=== PATIENT | female | born 1970 | race American Indian/Alaskan Native ===

== ENCOUNTER 2017-06-25 12:54 | Inpatient (IN) | payer MEDICARE ==
[2017-06-25] MEDS ORDERED: ZOFRAN ONE (12:57)
[2017-06-25] MEDS ORDERED: ZOFRAN IV ONE (13:01)
[2017-06-25 13:05] LABS: Eosinophils % (Auto) 6.9 % (0.0-4.3); Hematocrit 24.5 % (30.3-42.9); Hemoglobin 7.7 gm/dl (10.1-14.3); Mean Corpuscular HGB Conc 32 % (30-34); Mean Corpuscular Hemoglobin 30 pg (28-32); Mean Corpuscular Volume 94 fl (79-97); Platelet Count 517 K/mm3 (140-440); Red Blood Count 2.61 M/mm3 (3.65-5.03); Red Cell Distribution Width 13.8 % (13.2-15.2); White Blood Count 14.3 K/mm3 (4.5-11.0)
--- NOTE | 2017-06-25 13:05 | Emergency Department Report ---
HPI - General Time Seen by Provider: 06/25/17 12:55 - HPI HPI: Charge nurse triage/room 2 The chief complaint of altered mental status. EMS reports the patient's caregiver/mother noticed that the patient was not speaking at 11:45. The exact last known well time is not known as there is no family present in the EMS states that the patient was noted to be her normal self " this morning." EMS reports the patient is aphasic and appears to be flaccid on her right side. The patient occasionally makes eye contact me to interview but does not speak. The patient appears to have a right-sided ptosis and will not squeeze with either hand 1 rn plastics are assessed. Per EMS Accu-Chek was 90 14:18 Patient's mother/acute care nurse now at bedside and states that the patient's last known well time was between 09:00-10:00 and the patient was observed speaking in her normal fashion. Family states that approximately 11:45 patient was found to not speak and not behaving like her normal self and EMS was subsequently called Location: Mental state Duration: [See above] Quality: Altered, nonverbal Severity: Severe Modifying factors: [see above] Context: [see above] Mode of transportation: [not driving] ED Past Medical Hx - Past Medical History Hx Hypertension: Yes Hx Diabetes: Yes Hx Deep Vein Thrombosis: Yes Hx GERD: Yes - Surgical History Hx Cholecystectomy: Yes Additional Surgical History: bilateral aka 06/2015 - Family History Family history: no significant - Social History Smoking Status: Unknown if ever smoked - Medications Home Medications: Home Medications Medication Instructions Recorded Confirmed Last Taken Type Apixaban [Eliquis] 5 mg PO BID #60 tablet 07/11/15 08/28/15 Unknown Rx Gabapentin [Neurontin] 600 mg PO TID #90 capsule 07/11/15 08/28/15 Unknown Rx Potassium Chloride [K-Dur] 20 meq PO QDAY tablet 07/11/15 08/28/15 Unknown Rx Furosemide [Lasix TAB] 20 mg PO QDAY 08/26/15 08/28/15 Unknown History Hyoscyamine Subl [Levsin Sl 0.125 0.125 mg SL Q8HR PRN #20 tab 08/26/15 Unknown Rx TAB] Insulin Lispro [Humalog 100 0 units SQ AC 08/26/15 08/28/15 Unknown History UNITS/ML Kwikpen] Lisinopril [Zestril TAB] 20 mg PO QDAY 08/26/15 08/28/15 Unknown History Nitrofurantoin [place]/M-Cryst 100 mg PO Q12HR #14 capsule 08/26/15 08/28/15 Unknown Rx [Macrobid CAP] Ondansetron [Zofran ODT TAB] 8 mg PO Q8HR PRN #20 tab.rapdis 08/26/15 08/28/15 Unknown Rx Oxybutynin Chloride [Oxybutynin 5 mg PO QDAY 08/26/15 08/28/15 Unknown History Chloride ER] traMADol [Ultram 50 MG tab] 50 - 100 mg PO Q8HR PRN #20 tablet 08/26/15 Unknown Rx HYDROcodone/APAP 10-325 [[place] 10 mg PO Q6HR PRN 08/28/15 08/28/15 Unknown History 10-325 mg TAB] Cephalexin [Keflex] 500 mg PO Q6HR #20 capsule 11/30/15 Unknown Rx Ondansetron [Zofran Odt] 4 mg PO Q8HR #10 tab.rapdis 11/30/15 Unknown Rx traMADol [Ultram 50 MG tab] 50 mg PO Q6HR PRN #15 tablet 11/30/15 Unknown Rx ED Review of Systems ROS: Stated complaint: POSS CVA Other details as noted in HPI Comment: Unobtainable due to pts medical conditions Physical Exam - Physical Exam Physical Exam: GENERAL: The patient is well-developed well-nourished female lying on the EMS stretcher occasionally making eye contact but nonverbal. [] HEENT: Normocephalic. Atraumatic. Right-sided ptosis NECK: Trachea midline CHEST/LUNGS: There is no respiratory distress noted. HEART/CARDIOVASCULAR: Regular. There is no tachycardia. There is no gallop rub or murmur. ABDOMEN: Abdomen is soft, nontender. Patient has normal bowel sounds. There is no abdominal distention. SKIN: There is no rash. There is no diaphoresis. NEURO: The patient is awake but nonverbal. The patient occasionally makes eye contact but does not speak or follow commands. MUSCULOSKELETAL: There is no evidence of acute injury. ED Course - Consultations Consultation #1: 06/25/17 13:39 Tele-neurology consulted- case discussed with Dr. See. Recommends obtaining MRA Consultation #2: 06/25/17 17:[address] See-he states he discussed the case with [facility] neurologist Dr. Renteria and infarct is too large to consider thrombectomy. Recommends admission with CVA management Consultation #3: 06/25/17 17:12 Nephrology paged ED Medical Decision Making - Lab Data Result diagrams: 06/25/17 12:55 06/25/17 12:55 - EKG Data -: EKG Interpreted by Ne EKG shows normal: sinus rhythm Rate: tachycardia (107 bpm) - EKG Data When compared to previous EKG there are: previous EKG unavailable - Radiology Data Radiology results: report reviewed (CT head, MRI brain, MRA brain), image reviewed (CT head, MRI brain, MRA brain) CT head (regular etiology)-nonspecific/indeterminate left [facility] CT appearance. Otherwise no acute intracranial CT abnormality with year-old findings. MRI is more sensitive for detection of acute infarct may be useful for further evaluation in the setting of a focal neurologic deficit. MRA HEAD WITHOUT CONTRAST INDICATION: Aphasia. COMPARISON: None similar. FINDINGS: MRA of the head performed without intravenous contrast and demonstrates abrupt termination/occlusion of left MCA approximately 1.3 cm from its ICA origin as on axial series 3, image 75 with nonvisualization of further distal branches as well. Normal remainder [place]. No vascular malformation. Please note that detection of aneurysms less than 5 mm is limited on this exam. CONCLUSION: Complete occlusion/thrombosis of the left MCA, as described. I phoned the above results to Dr. Thomas in the ER, 3:45 PM, 06/25/2017. Thank you for the opportunity to participate in this patient's care. Transcribed By: RS Dictated By: ROBERT LEE MD Electronically Authenticated By: ROBERT LEE MD Signed Date/Time: 06/25/17 1608 DD/ 1604 TD/TT: 06/25/17 1608 MRI BRAIN WITHOUT CONTRAST INDICATION: Aphasia. COMPARISON: Head CT from earlier today. FINDINGS: Noncontrast multiplanar and multisequence MRI of the brain demonstrates large, approximately 11 x 4 cm left MCA acute infarct/restricted diffusion. No midline shift, though left lateral ventricle slightly effaced/smaller than the right as on axial image 16. Symmetric sulci. No acute hemorrhage or abnormal extra-axial masses or fluid collections. Normal major intracranial vascular flow voids with subtle left MCA CT hyperdensity not clearly appreciated, though better assessed on the accompanying MRA. Normal posterior fossa with symmetric seventh and eighth nerve complexes. Preserved basilar cisterns. Abnormal right eye globe signal, possibly a prosthesis. Normal left eye globe. Mild left sphenoid sinus mucosal thickening/debris. Minimal right maxillary and right mastoid inflammation. Clear remainder imaged paranasal sinuses and mastoid air cells. Approximately 5 mm rightward nasal septal spur. Normal midline structures without evidence of Chiari malformation. CONCLUSION: 1. Large left MCA territory frontotemporoparietal acute infarct, as described. 2. Other findings, including sinusitis and possible right eye prosthesis, as above. Please correlate. I phoned the above results to Dr. Thomas in the ER, 3:45 PM, 06/25/2017. Thank you for the opportunity to participate in this patient's care. Transcribed By: RS Dictated By: ROBERT LEE MD Electronically Authenticated By: ROBERT LEE MD Signed Date/Time: 06/25/17 1604 DD/ 1556 TD/TT: 06/25/17 1604 - Differential Diagnosis altered mental status, intracranial hemorrhage, CVA, hypoglycemia Critical care attestation.: If time is entered above; I have spent that time in minutes in the direct care of this critically ill patient, excluding procedure time. ED Disposition Clinical Impression: Altered mental status, Acute renal failure, CVA (cerebral vascular accident) Disposition: OP ADMIT IP TO THIS HOSP Is pt being admited?: Yes Does the pt Need Aspirin: No Condition: Serious Referrals: PRIMARY CARE, [Primary Care Provider] - 3-5 Days Time of Disposition: 17:09 (hospitalist notified (Dr Leslie))
[2017-06-25 13:16] LABS: INR 1.26 (0.87-1.13)
[2017-06-25 13:17] LABS: Partial Thromboplastin Time 35.3 Sec. (24.2-36.6)
--- NOTE | 2017-06-25 13:21 | Cat Scan Report ---
HEAD CT WITHOUT CONTRAST INDICATION: Altered mental status, aphasia. 98N. COMPARISON: None similar. FINDINGS: Noncontrast head CT demonstrates symmetric ventricles and sulci without acute hemorrhage, mass effect or midline shift. No definitive acute white matter changes identified with subtle nonspecific left MCA hyperdense appearance as on axial series 2, images 17-20. No abnormal extra-axial fluid collections. Posterior fossa structures and basilar cisterns appear within normal limits. Asymmetric extensive hyperdensity in the right eye globe, possibly prosthesis versus hemorrhagic. Mild left sphenoid sinus opacity/mucosal thickening, axial image 11. Slight right maxillary sinus mucosal thickening. Clear remainder imaged paranasal sinuses and mastoid air cells. Atherosclerotic ICA and vertebral artery calcifications. Intact calvarium. Normal scalp. Few radiopaque dental fillings. CONCLUSION: Nonspecific/indeterminate left MCA CT appearance, as described. Otherwise no acute intracranial CT abnormality with few other findings, as above. MRI is more sensitive for detection of acute infarct and may be useful for further evaluation in the setting of a focal neurologic deficit. I phoned the above results to Dr. Thomas in the ER, 1:10 PM, 06/25/2017. Thank you for the opportunity to participate in this patient's care.
[2017-06-25 13:23] LABS: Creatine Kinase MB 21.9 ng/mL (0.0-4.0)
[2017-06-25 13:24] LABS: Albumin 2.4 g/dL (3.9-5); Albumin/Globulin Ratio 0.6 %; Bilirubin,Total 0.2 mg/dL (0.1-1.2); Chloride 102.9 mmol/L (98-107); Potassium 4.4 mmol/L (3.6-5.0); Total Protein 6.5 g/dL (6.3-8.2)
[2017-06-25 13:56] LABS: Bacteria,Urine 4+ /HPF (Negative); Bilirubin,Urine NEG (Negative); Blood,Urine MOD (Negative); Ketones,Urine NEG (Negative); Leukocyte Esterase,Urine LG (Negative); Nitrite,Urine POS (Negative); Urobilinogen,Urine < 2.0 mg/dL (<2.0)
[2017-06-25 14:03] LABS: WBC,Urine > 182.0 /HPF (0.0-6.0)
--- NOTE | 2017-06-25 16:10 | Magnetic Resonance Report ---
MRI BRAIN WITHOUT CONTRAST INDICATION: Aphasia. COMPARISON: Head CT from earlier today. FINDINGS: Noncontrast multiplanar and multisequence MRI of the brain demonstrates large, approximately 11 x 4 cm left MCA acute infarct/restricted diffusion. No midline shift, though left lateral ventricle slightly effaced/smaller than the right as on axial image 16. Symmetric sulci. No acute hemorrhage or abnormal extra-axial masses or fluid collections. Normal major intracranial vascular flow voids with subtle left MCA CT hyperdensity not clearly appreciated, though better assessed on the accompanying MRA. Normal posterior fossa with symmetric seventh and eighth nerve complexes. Preserved basilar cisterns. Abnormal right eye globe signal, possibly a prosthesis. Normal left eye globe. Mild left sphenoid sinus mucosal thickening/debris. Minimal right maxillary and right mastoid inflammation. Clear remainder imaged paranasal sinuses and mastoid air cells. Approximately 5 mm rightward nasal septal spur. Normal midline structures without evidence of Chiari malformation. CONCLUSION: 1. Large left MCA territory frontotemporoparietal acute infarct, as described. 2. Other findings, including sinusitis and possible right eye prosthesis, as above. Please correlate. I phoned the above results to Dr. Thomas in the ER, 3:45 PM, 06/25/2017. Thank you for the opportunity to participate in this patient's care.
--- NOTE | 2017-06-25 16:14 | Magnetic Resonance Report ---
MRA HEAD WITHOUT CONTRAST INDICATION: Aphasia. COMPARISON: None similar. FINDINGS: MRA of the head performed without intravenous contrast and demonstrates abrupt termination/occlusion of left MCA approximately 1.3 cm from its ICA origin as on axial series 3, image 75 with nonvisualization of further distal branches as well. Normal remainder [place]. No vascular malformation. Please note that detection of aneurysms less than 5 mm is limited on this exam. CONCLUSION: Complete occlusion/thrombosis of the left MCA, as described. I phoned the above results to Dr. Thomas in the ER, 3:45 PM, 06/25/2017. Thank you for the opportunity to participate in this patient's care.
[2017-06-25] MEDS ORDERED: PLAVIX PO ONE (17:06)
[2017-06-25] MEDS ORDERED: SODIUM BICARBONATE 150 MEQ in D5W 1,000 ML IV ONE (17:16)
--- NOTE | 2017-06-25 17:24 | History and Physical Report ---
History of Present Illness Chief complaint: Mom jo talking History of present illness: 46 YO Female with HTN, DM, DVT, GERD presents to ED for evaluation. Pt stuporous , and unable to provide history, but history taken from daughter who is the primary caregiver and is at bedside during exam and interview. As per daughter, patient was in her usual state of health and was last observed speaking and interacting with family at 2345 hrs which is the last known well time. Upn waking this morning, patient was noted to be acting abnormal, and unable to speak. EMS notified, and upon arrival patient was found to be aphasic with flaccid right sided paralysis. Pt transported to [facility] for further care and evaluation. Pt seen and evaluated in ED and found to be in distress. Pt underwent CT head with revealed a large Left MCA territory infarct. Pt outside therapeutic window for TPA. Teleneurology notified. Case discussed with Dr. See-he states he discussed the case with [facility] neurologist Dr. Renteria who states that the infarct is too large to consider thrombectomy and recommends admission with CVA management . Case discussed with car hop Dr. Saeed- recommends initiating bicarbonate drip with D5 water with 150 mEq sodium bicarbonate at 100 mL/hr. Pt admitted to ICU. Past History Past Medical History: diabetes, DVT, GERD, hypertension Past Surgical History: Other (Bilateral AKA) Social history: , lives with family. denies: smoking, alcohol abuse, prescription drug abuse, IV drug use Family history: diabetes, hypertension Medications and Allergies Allergies Allergy/AdvReac Type Severity Reaction Status Date / Time heparin Allergy Severe Bleeding Verified 04/13/15 08:06 metoclopramide HCl Allergy Shortness Verified 04/17/15 17:01 [From Reglan] of Breath Home Medications Medication Instructions Recorded Confirmed Last Taken Type Gabapentin [Neurontin] 600 mg PO TID #90 capsule 07/11/15 06/25/17 Unknown Rx Furosemide [Lasix TAB] 20 mg PO QDAY 08/26/15 06/25/17 Unknown History Insulin Lispro [Humalog 100 0 units SQ AC 08/26/15 06/25/17 Unknown History UNITS/ML Kwikpen] HYDROcodone/APAP 10-325 [[place] 10 mg PO Q6HR PRN 08/28/15 06/25/17 Unknown History 10-325 mg TAB] Insulin Glargine,Hum.rec.anlog 35 units SQ QHS 06/25/17 06/25/17 Unknown History [Lantus] Active Meds: Active Medications Sodium Bicarbonate 150 meq/ (Dextrose) 1,150 mls @ 100 mls/hr IV ONCE.ED ONE Stop: 06/26/17 04:45 Review of Systems ROS unobtainable: due to mental status Exam - Constitutional Vitals: Temp Pulse Resp BP Pulse Ox 98.1 F 112 H 16 198/82 98 06/25/17 16:52 06/25/17 16:52 06/25/17 16:52 06/25/17 16:52 06/25/17 16:52 General appearance: Present: severe distress - EENT Eyes: Present: irregular pupil - Neck Neck: Present: supple, normal ROM - Respiratory Respiratory effort: labored Respiratory: bilateral: diminished - Cardiovascular Heart Sounds: Present: S1 & S2. Absent: rub, click - Extremities Extremities: pulses symmetrical, No edema Peripheral Pulses: within normal limits - Abdominal General gastrointestinal: Present: soft, non-tender, non-distended, normal bowel sounds Female genitourinary: Present: normal - Integumentary Integumentary: Present: clear, dry, clammy, decreased turgor - Musculoskeletal Musculoskeletal: right sided weakness - Psychiatric Psychiatric: no appropriate mood/affect, no intact judgment & insight, no memory intact - Neurologic Neurologic: focal deficits, no moves all extremities Results - Labs CBC & Chem 7: 06/25/17 12:55 06/25/17 12:55 Labs: Abnormal lab results 06/25/17 06/25/17 06/25/17 Range/Units 12:55 12:55 12:55 WBC 14.3 H (4.5-11.0) K/mm3 RBC 2.61 L (3.65-5.03) M/mm3 Hgb 7.7 L (10.1-14.3) gm/dl Hct 24.5 L (30.3-42.9) % Plt Count 517 H (140-440) K/mm3 Eos % (Auto) 6.9 H (0.0-4.3) % [place] # 1.0 H (0.0-0.8) K/mm3 Eos # 1.0 H (0.0-0.4) K/mm3 Seg Neutrophils # 8.4 H (1.8-7.7) K/mm3 PT 16.5 H (12.2-14.9) Sec. INR 1.26 H (0.87-1.13) Carbon Dioxide 10 L (22-30) mmol/L BUN 85 H (7-17) mg/dL Creatinine 6.6 H (0.7-1.2) mg/dL Glucose 117 H (65-100) mg/dL POC Glucose (70-105) Calcium 7.0 L (8.4-10.2) mg/dL Alkaline Phosphatase 267 H (35-129) units/L Total Creatine Kinase 158 H (30-135) units/L CK-MB (CK-2) 21.9 H (0.0-4.0) ng/mL CK-MB (CK-2) Rel Index 13.8 H (0-4) Troponin T 0.332 H* (0.00-0.029) ng/mL Albumin 2.4 L (3.9-5) g/dL LDL Cholesterol Direct 39 L (50-130) mg/dL HDL Cholesterol 32 L (40-59) mg/dL Urine WBC (Auto) (0.0-6.0) /HPF 06/25/17 06/25/17 Range/Units 12:59 13:38 WBC (4.5-11.0) K/mm3 RBC (3.65-5.03) M/mm3 Hgb (10.1-14.3) gm/dl Hct (30.3-42.9) % Plt Count (140-440) K/mm3 Eos % (Auto) (0.0-4.3) % [place] # (0.0-0.8) K/mm3 Eos # (0.0-0.4) K/mm3 Seg Neutrophils # (1.8-7.7) K/mm3 PT (12.2-14.9) Sec. INR (0.87-1.13) Carbon Dioxide (22-30) mmol/L BUN (7-17) mg/dL Creatinine (0.7-1.2) mg/dL Glucose (65-100) mg/dL POC Glucose 114 H (70-105) Calcium (8.4-10.2) mg/dL Alkaline Phosphatase (35-129) units/L Total Creatine Kinase (30-135) units/L CK-MB (CK-2) (0.0-4.0) ng/mL CK-MB (CK-2) Rel Index (0-4) Troponin T (0.00-0.029) ng/mL Albumin (3.9-5) g/dL LDL Cholesterol Direct (50-130) mg/dL HDL Cholesterol (40-59) mg/dL Urine WBC (Auto) > 182.0 H (0.0-6.0) /HPF Assessment and Plan - Patient Problems (1) Sepsis Current Visit: Yes Status: Acute Plan to address problem: Sepsis protocol: IV antibiotic therapy for UTI, IVF resuscitation, serial lactic acid, urinalysis, CXR, blood cultures, monitor uop q shift, The high probability of a clinically significant, sudden or life threatening deterioration of the [cardiac, renal, neurologic] system(s) required my full and direct attention, intervention and personal management. The aggregate critical care time was [70] minutes. This time is in addition to time spent performing reported procedures but includes the following: [x] Data Review and interpretation [x] Patient assessment and monitoring of vital signs [x] Documentation [x] Medication orders and management (2) ARF (acute renal failure) Current Visit: Yes Status: Acute Plan to address problem: Nephrology consulted, IVF resuscitation therapy, urine electrolytes, monitor uop q shift, bicarbonate drip. (3) UTI (urinary tract infection) Current Visit: Yes Status: Acute Plan to address problem: IV abx, monitor uop q shift, stewart catheter placement, (4) Accelerated essential hypertension Current Visit: Yes Status: Acute Plan to address problem: Monitor BP Q shift, permissive hypertension overnight secondary to Ischemic CVA. (5) CVA (cerebral vascular accident) Current Visit: Yes Status: Acute Qualifiers: Precerebral and cerebral artery: middle cerebral artery Laterality of affected vessel: left Plan to address problem: Stroke protocol: teleneurology consulted, supportive care. permissive hypertension overnight, poor prognosis. Discussed prognosis with daughter. Will continue medical management. (6) DVT prophylaxis Current Visit: No Status: Acute
[2017-06-25] MEDS ORDERED: DULCOLAX PR PRN (18:46)
[2017-06-25] MEDS ORDERED: ALUM-MAG HYDROX-SIMETH 200-200-20MG/5ML PO PRN (18:46)
[2017-06-25] MEDS ORDERED: MILK OF MAGNESIA PO PRN (18:46)
[2017-06-25] MEDS ORDERED: VANCOMYCIN VIAL IV ONE (18:50)
[2017-06-25] MEDS ORDERED: NACL 0.9% 1000 ML IV ONE (18:50)
[2017-06-25] MEDS ORDERED: D50W (25GM) Syringe IV PRN (18:53)
[2017-06-25] MEDS ORDERED: VANCOMYCIN PHARMACY TO DOSE IV SCH (19:00)
--- NOTE | 2017-06-25 20:04 | XRay Report ---
FINAL REPORT PROCEDURE: XR ABDOMEN 1V AP TECHNIQUE: AP view of the abdomen is obtained HISTORY: Dobhoff placement COMPARISON: CT exam dated August 28, 2015 FINDINGS: Dobbhoff tube has its tip in the region of the antrum of the stomach, directed right laterally. It would likely benefit from being advanced into the duodenum. No small bowel dilation is seen. IMPRESSION: Dobbhoff tube has its tip in the region of the antrum of the stomach, and would likely benefit from being advanced into the duodenum.
[2017-06-25] MEDS ORDERED: NACL 0.9% 1000 ML 2,000 ML ONE (20:38)
[2017-06-25] MEDS ORDERED: VANCOMYCIN 1,250 MG in NACL 0.9% 250ML 250 ML IV ONE (21:00)
[2017-06-25] MEDS ORDERED: SODIUM BICARBONATE IV ONE ×3 (21:10→23:22)
[2017-06-25] MEDS ORDERED: ZOSYN/NS 4.5GM/100ML 4.5 GM/100 ML VIAL IV SCH (22:00)
[2017-06-25] MEDS ORDERED: SODIUM BICARBONATE 150 MEQ in D5W 1,000 ML IV SCH (22:00)
--- NOTE | 2017-06-25 22:24 | XRay Report ---
FINAL REPORT PROCEDURE: XR CHEST 1V AP TECHNIQUE: Chest radiograph anteroposterior view. CPT 16556 HISTORY: volume status COMPARISON: No prior studies are available for comparison. FINDINGS: Heart is borderline enlarged without pulmonary venous congestion or pulmonary edema. No pleural effusion or pneumothorax is seen. Enteric tube is seen passing into the stomach off of the edge of the image. IMPRESSION: Borderline cardiomegaly is seen.
[2017-06-25] MEDS: NOVOLOG SUB-Q SCH (23:12)
[2017-06-25] MEDS ORDERED: NOVOLOG SUB-Q ONE (23:13)
[2017-06-26] MEDS ORDERED: NEURONTIN ONE (00:51)
[2017-06-26] MEDS ORDERED: PLAVIX ONE (00:51)
[2017-06-26] MEDS: NEURONTIN PO SCH ×4 (01:07→23:01)
[2017-06-26] MEDS: ZOSYN/NS 2.25 GM/50ML 2.25 GM/50 ML BAG IV SCH ×3 (01:07→17:02)
[2017-06-26] MEDS: NOVOLOG SUB-Q SCH ×4 (08:05→23:07)
[2017-06-26] MEDS ORDERED: LASIX PO SCH (10:00)
[2017-06-26] MEDS ORDERED: TYLENOL ONE (11:45)
--- NOTE | 2017-06-26 12:09 | Progress Note ---
Assessment and Plan Assessment and plan: Large acute L MCA stroke CT head/brain MRI obtained and showing large L MCA territory infarct On presentation out of window for TPA administration, but also not a candidate due to the size of infarct Neurologist at [facility] contacted and considered not a candidate for thrombectomy Allow permissive hypertension, frequent neuro checks, supportive care, antiplatelet and statin Based on evolution, PT/OT/ST evaluation Sepsis Likely secondary to UTI Blood and urine cultures obtained Started on broad-spectrum antibiotics and IV fluids UTI See above Acute renal failure ATN versus vasomotor nephropathy Renal ultrasound pending Hold diuretics, other nephrotoxins Continue IV fluids Nephrology following Severe metabolic acidosis Due to acute renal failure Started on bicarbonate drip Nephrology following Anemia Likely anemia of chronic disease Check iron studies, folate, B12 Monitor H&H Thrombocytosis Likely reactive Monitor Elevated troponin EKG with no acute ischemic changes Likely nonspecific, in the setting of acute renal failure Hypertension Permissive hypertension post stroke SBP in 160s Monitor Severe protein caloric malnutrition Now NPO; consider tube feeding Acute encephalopathy Treatment underlying conditions Supportive care Dispo Poor prognosis; family requesting transfer to [facility] for "specialized care"; Dr. See tele neurologist consulted on ER presentation stated he discussed the case with [place] neurologist Dr. Renteria who stated that the infarct is too large to consider thrombectomy and recommended admission here with CVA management History Interval history: no change in clinical status, unresponsive daughters at bedside, requesting tx to [facility] despite being told that [facility] neurologist declined it Hospitalist Physical - Constitutional Vitals: Temp Pulse Resp BP Pulse Ox 99.2 F 95 H 15 160/69 99 06/26/17 07:17 06/26/17 08:15 06/26/17 08:15 06/26/17 08:15 06/26/17 08:15 General appearance: Present: mild distress, other (unresponsive) - EENT Eyes: Present: PERRL - Neck Neck: Present: supple. Absent: masses or JVD, carotid bruits - Respiratory Respiratory effort: normal Respiratory: bilateral: CTA, negative: rhonchi, wheezing - Cardiovascular Rhythm: other (tachycardic) - Extremities Extremities: abnormal (B/l AKA) - Abdominal General gastrointestinal: soft, non-tender, non-distended, normal bowel sounds - Psychiatric Psychiatric: other (nonverbal) - Neurologic Neurologic: other (right sided hemiplegia) Results - Labs CBC & Chem 7: 12/07/17 12:55 06/25/17 12:55 Labs: Laboratory Last Values WBC 14.3 K/mm3 (4.5-11.0) H 06/25/17 12:55 RBC 2.61 M/mm3 (3.65-5.03) L 06/25/17 12:55 Hgb 7.7 gm/dl (10.1-14.3) L 06/25/17 12:55 Hct 24.5 % (30.3-42.9) L 06/25/17 12:55 MCV 94 fl (79-97) 06/25/17 12:55 MCH 30 pg (28-32) 06/25/17 12:55 MCHC 32 % (30-34) 06/25/17 12:55 RDW 13.8 % (13.2-15.2) 06/25/17 12:55 Plt Count 517 K/mm3 (140-440) H 06/25/17 12:55 Lymph % (Auto) 26.4 % (13.4-35.0) 06/25/17 12:55 [place] % (Auto) 6.9 % (0.0-7.3) 06/25/17 12:55 Eos % (Auto) 6.9 % (0.0-4.3) H 06/25/17 12:55 Baso % (Auto) 1.0 % (0.0-1.8) 06/25/17 12:55 Lymph # 3.8 K/mm3 (1.2-5.4) 06/25/17 12:55 [place] # 1.0 K/mm3 (0.0-0.8) H 06/25/17 12:55 Eos # 1.0 K/mm3 (0.0-0.4) H 06/25/17 12:55 Baso # 0.1 K/mm3 (0.0-0.1) 06/25/17 12:55 Seg Neutrophils % 58.8 % (40.0-70.0) 06/25/17 12:55 Seg Neutrophils # 8.4 K/mm3 (1.8-7.7) H 06/25/17 12:55 PT 16.5 Sec. (12.2-14.9) H 06/25/17 12:55 INR 1.26 (0.87-1.13) H 06/25/17 12:55 APTT 35.3 Sec. (24.2-36.6) 06/25/17 12:55 Sodium 137 mmol/L (137-145) 06/25/17 12:55 Potassium 4.4 mmol/L (3.6-5.0) 06/25/17 12:55 Chloride 102.9 mmol/L (98-107) 06/25/17 12:55 Carbon Dioxide 10 mmol/L (22-30) L 06/25/17 12:55 Anion Gap 29 mmol/L 06/25/17 12:55 BUN 85 mg/dL (7-17) H 06/25/17 12:55 Creatinine 6.6 mg/dL (0.7-1.2) H 06/25/17 12:55 Estimated GFR 8 ml/min 06/25/17 12:55 BUN/Creatinine Ratio 13 % 06/25/17 12:55 Glucose 117 mg/dL (65-100) H 06/25/17 12:55 POC Glucose 129 (70-105) H 06/26/17 07:46 Lactic Acid 0.90 mmol/L (0.7-2.0) 06/26/17 00:36 Calcium 7.0 mg/dL (8.4-10.2) L 06/25/17 12:55 Total Bilirubin 0.20 mg/dL (0.1-1.2) 06/25/17 12:55 AST 18 units/L (5-40) 06/25/17 12:55 ALT 9 units/L (7-56) 06/25/17 12:55 Alkaline Phosphatase 267 units/L (35-129) H 06/25/17 12:55 Ammonia 57.0 umol/L (25-60) 06/25/17 13:04 Total Creatine Kinase 158 units/L (30-135) H 06/25/17 12:55 CK-MB (CK-2) 21.9 ng/mL (0.0-4.0) H 06/25/17 12:55 CK-MB (CK-2) Rel Index 13.8 (0-4) H 06/25/17 12:55 Troponin T 0.332 ng/mL (0.00-0.029) H* 06/25/17 12:55 Total Protein 6.5 g/dL (6.3-8.2) 06/25/17 12:55 Albumin 2.4 g/dL (3.9-5) L 06/25/17 12:55 Albumin/Globulin Ratio 0.6 % 06/25/17 12:55 Triglycerides 141 mg/dL (2-149) 06/25/17 12:55 Cholesterol 99 mg/dL (50-199) 06/25/17 12:55 LDL Cholesterol Direct 39 mg/dL (50-130) L 06/25/17 12:55 HDL Cholesterol 32 mg/dL (40-59) L 06/25/17 12:55 Cholesterol/HDL Ratio 3.09 % 06/25/17 12:55 Urine Color Yellow (Yellow) 06/25/17 13:38 Urine Turbidity Clear (Clear) 06/25/17 13:38 Urine pH 5.0 (5.0-7.0) 06/25/17 13:38 Ur Specific [place] 1.013 (1.003-1.030) 06/25/17 13:38 Urine Protein 100 mg/dl mg/dL (Negative) 06/25/17 13:38 Urine Glucose (UA) 50 mg/dL (Negative) 06/25/17 13:38 Urine Ketones Neg mg/dL (Negative) 06/25/17 13:38 Urine Blood Mod (Negative) 06/25/17 13:38 Urine Nitrite Pos (Negative) 06/25/17 13:38 Urine Bilirubin Neg (Negative) 06/25/17 13:38 Urine Urobilinogen < 2.0 mg/dL (<2.0) 06/25/17 13:38 Ur Leukocyte Esterase Lg (Negative) 06/25/17 13:38 Urine WBC (Auto) > 182.0 /HPF (0.0-6.0) H 06/25/17 13:38 Urine RBC (Auto) 12.0 /HPF (0.0-6.0) 06/25/17 13:38 U Epithel Cells (Auto) 1.0 /HPF (0-13.0) 06/25/17 13:38 Urine Bacteria (Auto) 4+ /HPF (Negative) 06/25/17 13:38 Urine WBC Clumps 3+ /HPF 06/25/17 13:38 Urine Eosinophils None seen (None Seen) 06/25/17 13:38 Urine Creatinine 49.9 mg/dL (0.1-20.0) H 06/25/17 19:20 Urine Sodium 68 mmol/L 06/25/17 19:20 - Imaging and Cardiology CT Scan - head: report reviewed MRI - head: report reviewed (Large L MCA stroke)
--- NOTE | 2017-06-26 12:52 | Ultrasound Report ---
ULTRASOUND RENAL BILATERAL HISTORY: Renal failure. TECHNIQUE: transabdominal ultrasound with color Doppler interrogation. FINDINGS: The right kidney measures 12.0 x 5.1 x 4.7cm. Right renal cortex: 1.1cm. The left kidney measures 10.9 x 5.4 x 4.9cm. Left renal cortex: 1.2cm. The kidneys are normal size, contour and position. There is increased renal parenchymal echotexture bilaterally. Corticomedullary differentiation is preserved. No evidence for cystic disease, mass, nephrolithiasis, hydronephrosis or perinephric fluid. The views of the bladder and the region of the ureters appear normal. IMPRESSION: Normal size but echogenic kidneys consistent with nonspecific renal parenchymal disease. No obstructive uropathy identified.
--- NOTE | 2017-06-26 13:04 | Consultation ---
History of Present Illness - Reason for Consult Consult date: 06/26/17 acute renal failure - History of Present Illness Ms Roselia is a 46 y/o F with a PMH of HTN, DM, DVT, GERD, PVD s/p BL AKA who has been admitted to the [facility] with Stroke. Pt per family yesterday morning was unable to speak. She also had nausea and vomiting. She was brought to the ER where she was found to be aphasic with right sided paralysis. Pt had a CT brain done that showed large left MCA stroke. Pt was also found to have metabolic acidosis with ARF on labs. She is currently lethargic. Pt has a stewart and is making good urine. ROS: Unable to obtain as patient altered. Past History Past Medical History: diabetes, DVT, GERD, hypertension Past Surgical History: Other (Bilateral AKA) Social history: , lives with family. denies: smoking, alcohol abuse, prescription drug abuse, IV drug use Family history: diabetes, hypertension Medications and Allergies Allergies Allergy/AdvReac Type Severity Reaction Status Date / Time heparin Allergy Severe Bleeding Verified 04/13/15 08:06 metoclopramide HCl Allergy Shortness Verified 04/17/15 17:01 [From Reglan] of Breath Home Medications Medication Instructions Recorded Confirmed Last Taken Type Gabapentin [Neurontin] 600 mg PO TID #90 capsule 07/11/15 06/25/17 Unknown Rx Furosemide [Lasix TAB] 20 mg PO QDAY 08/26/15 06/25/17 Unknown History Insulin Lispro [Humalog 100 0 units SQ AC 08/26/15 06/25/17 Unknown History UNITS/ML Kwikpen] HYDROcodone/APAP 10-325 [[place] 10 mg PO Q6HR PRN 08/28/15 06/25/17 Unknown History 10-325 mg TAB] Insulin Glargine,Hum.rec.anlog 35 units SQ QHS 06/25/17 06/25/17 Unknown History [Lantus] Active Meds: Active Medications Al Hydrox/Mg Hydrox/Simethicone (Alum-Mag Hydrox-Simeth 106-591-72sm/5ml) 30 ml PO Q4H PRN PRN Reason: Indigestion Atorvastatin Calcium (Lipitor) 40 mg PO QHS [facility] Bisacodyl (Dulcolax) 10 mg UT QDAY PRN PRN Reason: constipation unrelieved by MOM Clopidogrel Bisulfate (Plavix) 75 mg PO QDAY [facility] Dextrose (D50w (25gm) Syringe) 50 ml IV PRN PRN PRN Reason: Hypoglycemia Gabapentin (Neurontin) 600 mg PO TID [facility] Last Admin: 06/26/17 09:32 Dose: 600 mg Piperacillin Sod/Tazobactam Sod (Zosyn/Ns 2.25 Gm/50ml) 2.25 gm in 50 mls @ 100 mls/hr IV Q8HR [facility] Last Admin: 06/26/17 06:32 Dose: 100 mls/hr Sodium Bicarbonate 150 meq/ (Dextrose) 1,150 mls @ 100 mls/hr IV DIRECT [facility] Last Admin: 06/25/17 23:43 Dose: 100 mls/hr Insulin Aspart (Novolog) 0 units SUB-Q ACHS [facility] PRN Reason: Protocol Last Admin: 06/26/17 12:17 Dose: Not Given Magnesium Hydroxide (Milk Of Magnesia) 30 ml PO Q4H PRN PRN Reason: Constipation Exam - Vital Signs Vital signs: Vital Signs Temp Pulse Resp BP Pulse Ox 98.6 F 108 H 16 185/87 96 06/25/17 13:11 06/25/17 13:11 06/25/17 13:11 06/25/17 13:11 06/25/17 13:11 - Physical Exam Narrative exam: GE: lethargic HEENT: Normocephalic Neck: Supple Chest: CTAB CVS: RRR Abd: BS+, Soft Ext: BL AKA Neuro: Altered UG: Stewart with clear yellow urine Results - Lab Results 06/26/17 Unknown 06/26/17 Unknown Most recent lab results Calcium 7.0 mg/dL (8.4-10.2) L 06/25/17 12:55 Urine Creatinine 49.9 mg/dL (0.1-20.0) H 06/25/17 19:20 Urine Sodium 68 mmol/L 06/25/17 19:20 Assessment and Plan Acute Renal failure likely pre renal, possible CKD from DM/HTN: -No BL Cr available so unknown if has CKD or not though give diabetic complications might very well have it -Cr trending down with IVFs. Will continue bicarb drip at 125 mls/hr. -Urine studies/Renal US ordered -RN to find out old labs from PCP -Renally dose all meds and avoid nephrotoxic meds Acute Left MCA stroke: -On plavix, statin -Per primary Metabolic acidosis: -Improving with bicarb drip, will continue Sepsis due to Urinary tract infection: -Follow Cx. On ABx -Per primary Diabetes mellitus type 2 on insulin: -Per primary Essential Hypertension: -Permissive HTN per primary and Neurology Anemia possibly Anemia of chronic disease: -Possibly due to CKD -Check Iron panel, if suggests ACD then will need epogen -Transfuse PRN per primary Hypocalcemia: -Improved when corrected for albumin -2 gms Ca gluconate ordered -Check PTH for 2HPT, if high may need calcitriol Hypomagnesemia: -Will replace S/p BL BKA: -On Plavix and statin With this note, I want to thank Dr Leslie for allowing me to participate in the care of Ms Veloz, i will continue to follow her closely with you. Thank you for the consult. Boris Saeed MD Nephrology, Hypertension, Dialysis, Transplantation Phone no: [phone]
[2017-06-26 13:37] LABS: Basophils % (Auto) 0.7 % (0.0-1.8); Eosinophils % (Auto) 3.2 % (0.0-4.3); Hemoglobin 6.2 gm/dl (10.1-14.3); Mean Corpuscular HGB Conc 32 % (30-34); Mean Corpuscular Hemoglobin 29 pg (28-32); Mean Corpuscular Volume 92 fl (79-97); Platelet Count 477 K/mm3 (140-440); Red Blood Count 2.11 M/mm3 (3.65-5.03); Red Cell Distribution Width 13.8 % (13.2-15.2); White Blood Count 9.6 K/mm3 (4.5-11.0)
[2017-06-26 13:44] LABS: Hematocrit 19.3 % (30.3-42.9)
[2017-06-26 13:48] LABS: Chloride 100.1 mmol/L (98-107); Magnesium 1.4 mg/dL (1.7-2.3); Phosphorous 5.7 mg/dL (2.5-4.5); Potassium 3.1 mmol/L (3.6-5.0)
[2017-06-26 13:53] LABS: Calcium 5.7 mg/dL (8.4-10.2)
[2017-06-26] MEDS ORDERED: MAGNESIUM SULFATE IV ONE (14:44)
[2017-06-26] MEDS ORDERED: MAGNESIUM SULFATE 2GM/50ML 2 GM/50 ML BAG IV ONE ×2 (15:30→22:00)
[2017-06-26 16:00] LABS: Iron 17 ug/dL (37-170); Total Iron Binding Capacity 112 mcg/dL (250-450)
[2017-06-26] MEDS: SODIUM BICARBONATE 150 MEQ in D5W 1,000 ML IV SCH (17:04)
[2017-06-26] MEDS ORDERED: NACL 0.9% 500 ML 500 ML IV ONE (17:44)
[2017-06-26] MEDS ORDERED: MAGNESIUM SULFATE 1 GM in NACL 0.9% 50 ML IV ONE (17:45)
[2017-06-26] MEDS ORDERED: CALCIUM GLUCONATE 2,000 MG in NACL 0.9% 100 ML IV ONE (18:00)
[2017-06-27] MEDS ORDERED: NACL 0.9% 500 ML 500 ML IV ONE (00:10)
[2017-06-27] MEDS: KCL 10MEQ/100ML 10 MEQ/100 ML BAG IV SCH ×3 (02:59→04:44)
[2017-06-27] MEDS: APRESOLINE IV PRN ×2 (03:13→16:20)
[2017-06-27] MEDS: TYLENOL PO PRN ×2 (05:11→15:43)
[2017-06-27] MEDS: SODIUM BICARBONATE 150 MEQ in D5W 1,000 ML IV SCH ×2 (05:13→15:36)
[2017-06-27 07:50] LABS: Basophils % (Auto) 0.7 % (0.0-1.8); Eosinophils % (Auto) 0.4 % (0.0-4.3); Hematocrit 25.9 % (30.3-42.9); Hemoglobin 8.4 gm/dl (10.1-14.3); Mean Corpuscular HGB Conc 32 % (30-34); Mean Corpuscular Hemoglobin 29 pg (28-32); Mean Corpuscular Volume 90 fl (79-97); Platelet Count 595 K/mm3 (140-440); Red Cell Distribution Width 14.8 % (13.2-15.2); White Blood Count 15.8 K/mm3 (4.5-11.0)
[2017-06-27 08:08] LABS: Alanine Aminotransferase 7 units/L (7-56); Albumin 2.2 g/dL (3.9-5); Albumin/Globulin Ratio 0.6 %; Alkaline Phosphatase 194 units/L (35-129); Anion Gap 24 mmol/L; BUN/Creatinine Ratio 12; Blood Urea Nitrogen 62 mg/dL (7-17); Calcium 6.6 mg/dL (8.4-10.2); Carbon Dioxide 21 mmol/L (22-30); Chloride 101.4 mmol/L (98-107); Glucose 211 mg/dL (65-100); Potassium 4.1 mmol/L (3.6-5.0); Sodium 142 mmol/L (137-145); Total Protein 6.1 g/dL (6.3-8.2)
[2017-06-27 08:09] LABS: Bilirubin,Direct < 0.2 mg/dL (0-0.2); Bilirubin,Indirect 0.1 mg/dL
[2017-06-27] MEDS: ZOSYN/NS 2.25 GM/50ML 2.25 GM/50 ML BAG IV SCH ×3 (08:41→14:20)
--- NOTE | 2017-06-27 09:37 | Progress Note ---
Assessment and Plan Assessment and plan: Large acute L MCA stroke CT head/brain MRI obtained and showing large L MCA territory infarct On presentation out of window for TPA administration, but also not a candidate due to the size of infarct Neurologist at [facility] contacted and considered not a candidate for thrombectomy Allow permissive hypertension, frequent neuro checks, supportive care, antiplatelet and statin Based on evolution, PT/OT/ST evaluation Sepsis Likely secondary to UTI Blood and urine cultures obtained Started on broad-spectrum antibiotics and IV fluids UTI See above Acute renal failure ATN versus vasomotor nephropathy Renal ultrasound pending Hold diuretics, other nephrotoxins Continue IV fluids Nephrology following Severe metabolic acidosis Due to acute renal failure Started on bicarbonate drip Nephrology following Anemia Likely anemia of chronic disease Check iron studies, folate, B12 Monitor H&H Thrombocytosis Likely reactive Monitor Elevated troponin EKG with no acute ischemic changes Likely nonspecific, in the setting of acute renal failure Hypertension Permissive hypertension post stroke SBP in 160s Monitor Severe protein caloric malnutrition Now NPO; consider tube feeding Acute encephalopathy Treatment underlying conditions Supportive care Dispo Poor prognosis; family requesting transfer to [facility] for "specialized care"; Dr. See tele neurologist consulted on ER presentation stated he discussed the case with [place] neurologist Dr. Renteria who stated that the infarct is too large to consider thrombectomy and recommended admission here with CVA management Hospitalist Physical - Constitutional Vitals: Temp Pulse Resp BP Pulse Ox 98.3 F 111 H 18 187/78 94 06/27/17 09:09 06/27/17 09:09 06/27/17 09:09 06/27/17 09:09 06/27/17 09:09 General appearance: Present: mild distress, other (unresponsive) Results - Labs CBC & Chem 7: 06/27/17 07:26 06/27/17 07:26 Labs: Laboratory Last Values WBC 15.8 K/mm3 (4.5-11.0) H 06/27/17 07:26 RBC 2.90 M/mm3 (3.65-5.03) L 06/27/17 07:26 Hgb 8.4 gm/dl (10.1-14.3) L 06/27/17 07:26 Hct 25.9 % (30.3-42.9) L D 06/27/17 07:26 MCV 90 fl (79-97) 06/27/17 07:26 MCH 29 pg (28-32) 06/27/17 07:26 MCHC 32 % (30-34) 06/27/17 07:26 RDW 14.8 % (13.2-15.2) 06/27/17 07:26 Plt Count 595 K/mm3 (140-440) H 06/27/17 07:26 Lymph % (Auto) 14.1 % (13.4-35.0) 06/27/17 07:26 [place] % (Auto) 9.4 % (0.0-7.3) H 06/27/17 07:26 Eos % (Auto) 0.4 % (0.0-4.3) 06/27/17 07:26 Baso % (Auto) 0.7 % (0.0-1.8) 06/27/17 07:26 Lymph # 2.2 K/mm3 (1.2-5.4) 06/27/17 07:26 [place] # 1.5 K/mm3 (0.0-0.8) H 06/27/17 07:26 Eos # 0.1 K/mm3 (0.0-0.4) 06/27/17 07:26 Baso # 0.1 K/mm3 (0.0-0.1) 06/27/17 07:26 Seg Neutrophils % 75.4 % (40.0-70.0) H 06/27/17 07:26 Seg Neutrophils # 11.9 K/mm3 (1.8-7.7) H 06/27/17 07:26 PT 16.5 Sec. (12.2-14.9) H 06/25/17 12:55 INR 1.26 (0.87-1.13) H 06/25/17 12:55 APTT 35.3 Sec. (24.2-36.6) 06/25/17 12:55 Sodium 142 mmol/L (137-145) 06/27/17 07:26 Potassium 4.1 mmol/L (3.6-5.0) D 06/27/17 07:26 Chloride 101.4 mmol/L (98-107) 06/27/17 07:26 Carbon Dioxide 21 mmol/L (22-30) L 06/27/17 07:26 Anion Gap 24 mmol/L 06/27/17 07:26 BUN 62 mg/dL (7-17) H 06/27/17 07:26 Creatinine 5.3 mg/dL (0.7-1.2) H 06/27/17 07:26 Estimated GFR 11 ml/min 06/27/17 07:26 BUN/Creatinine Ratio 12 % 06/27/17 07:26 Glucose 211 mg/dL (65-100) H 06/27/17 07:26 POC Glucose 228 (70-105) H 06/27/17 08:50 Lactic Acid 0.90 mmol/L (0.7-2.0) 06/26/17 00:36 Calcium 6.6 mg/dL (8.4-10.2) L D 06/27/17 07:26 Phosphorus 5.00 mg/dL (2.5-4.5) H 06/27/17 07:26 Magnesium 1.90 mg/dL (1.7-2.3) 06/27/17 07:26 Iron 17 ug/dL (37-170) L 06/26/17 Unknown TIBC 112 mcg/dL (250-450) L 06/26/17 Unknown Total Bilirubin 0.30 mg/dL (0.1-1.2) 06/27/17 07:26 Direct Bilirubin < 0.2 mg/dL (0-0.2) 06/27/17 07:26 Indirect Bilirubin 0.1 mg/dL 06/27/17 07:26 AST 17 units/L (5-40) 06/27/17 07:26 ALT 7 units/L (7-56) 06/27/17 07:26 Alkaline Phosphatase 194 units/L (35-129) H 06/27/17 07:26 Ammonia 57.0 umol/L (25-60) 06/25/17 13:04 Total Creatine Kinase 158 units/L (30-135) H 06/25/17 12:55 CK-MB (CK-2) 21.9 ng/mL (0.0-4.0) H 06/25/17 12:55 CK-MB (CK-2) Rel Index 13.8 (0-4) H 06/25/17 12:55 Troponin T 0.332 ng/mL (0.00-0.029) H* 06/25/17 12:55 Total Protein 6.1 g/dL (6.3-8.2) L 06/27/17 07:26 Albumin 2.2 g/dL (3.9-5) L 06/27/17 07:26 Albumin/Globulin Ratio 0.6 % 06/27/17 07:26 Triglycerides 141 mg/dL (2-149) 06/25/17 12:55 Cholesterol 99 mg/dL (50-199) 06/25/17 12:55 LDL Cholesterol Direct 39 mg/dL (50-130) L 06/25/17 12:55 HDL Cholesterol 32 mg/dL (40-59) L 06/25/17 12:55 Cholesterol/HDL Ratio 3.09 % 06/25/17 12:55 Urine Color Yellow (Yellow) 06/25/17 13:38 Urine Turbidity Clear (Clear) 06/25/17 13:38 Urine pH 5.0 (5.0-7.0) 06/25/17 13:38 Ur Specific [place] 1.013 (1.003-1.030) 06/25/17 13:38 Urine Protein 100 mg/dl mg/dL (Negative) 06/25/17 13:38 Urine Glucose (UA) 50 mg/dL (Negative) 06/25/17 13:38 Urine Ketones Neg mg/dL (Negative) 06/25/17 13:38 Urine Blood Mod (Negative) 06/25/17 13:38 Urine Nitrite Pos (Negative) 06/25/17 13:38 Urine Bilirubin Neg (Negative) 06/25/17 13:38 Urine Urobilinogen < 2.0 mg/dL (<2.0) 06/25/17 13:38 Ur Leukocyte Esterase Lg (Negative) 06/25/17 13:38 Urine WBC (Auto) > 182.0 /HPF (0.0-6.0) H 06/25/17 13:38 Urine RBC (Auto) 12.0 /HPF (0.0-6.0) 06/25/17 13:38 U Epithel Cells (Auto) 1.0 /HPF (0-13.0) 06/25/17 13:38 Urine Bacteria (Auto) 4+ /HPF (Negative) 06/25/17 13:38 Urine WBC Clumps 3+ /HPF 06/25/17 13:38 Urine Eosinophils None seen (None Seen) 06/25/17 13:38 Urine Creatinine 49.9 mg/dL (0.1-20.0) H 06/25/17 19:20 Urine Sodium 68 mmol/L 06/25/17 19:20 Blood Type A POSITIVE 06/26/17 20:05 Antibody Screen Negative 06/26/17 20:05 Crossmatch See Detail 06/26/17 20:05
[2017-06-27] MEDS: NEURONTIN PO SCH ×2 (09:50→15:43)
[2017-06-27] MEDS ORDERED: PLAVIX PO SCH (10:00)
--- NOTE | 2017-06-27 12:28 | Consultation ---
History of Present Illness Consult date: 06/27/17 History of present illness: I have dictated a full note and patient seen at Dr. Wharton's request... very complicated case- clearly onset of the symptoms was six or more hours prior because of the appearance of the MRI also she had total occlusion of the MCA on the MRA this si confirmed by my review stroke in the left MCA territory is very large and realed to ischemia from the blockage.... 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 denies: smoking, alcohol abuse, prescription drug abuse, IV drug use Family history: diabetes, hypertension Medications and Allergies Allergies Allergy/AdvReac Type Severity Reaction Status Date / Time heparin Allergy Severe Bleeding Verified 04/13/15 08:06 metoclopramide HCl Allergy Shortness Verified 04/17/15 17:01 [From Reg[facility]] of Breath Home Medications Medication Instructions Recorded Confirmed Last Taken Type Gabapentin [Neurontin] 600 mg PO TID #90 capsule 07/11/15 06/25/17 Unknown Rx Furosemide [Lasix TAB] 20 mg PO QDAY 08/26/15 06/25/17 Unknown History Insulin Lispro [Humalog 100 0 units SQ AC 08/26/15 06/25/17 Unknown History UNITS/ML Kwikpen] HYDROcodone/APAP 10-325 [[place] 10 mg PO Q6HR PRN 08/28/15 06/25/17 Unknown History 10-325 mg TAB] Insulin Glargine,Hum.rec.anlog 35 units SQ QHS 06/25/17 06/25/17 Unknown History [Lantus] Active Meds: Active Medications Acetaminophen (Tylenol) 650 mg PO Q6H PRN PRN Reason: Pain, Mild (1-3) Last Admin: 06/27/17 05:11 Dose: 650 mg Al Hydrox/Mg Hydrox/Simethicone (Alum-Mag Hydrox-Simeth [id number]/5ml) 30 ml PO Q4H PRN PRN Reason: Indigestion Atorvastatin Calcium (Lipitor) 40 mg PO QHS [facility] Last Admin: 06/26/17 23:01 Dose: 40 mg Bisacodyl (Dulcolax) 10 mg [place] QDAY PRN PRN Reason: constipation unrelieved by MOM Clopidogrel Bisulfate (Plavix) 75 mg PO QDAY [facility] Last Admin: 06/27/17 10:40 Dose: 75 mg Dextrose (D50w (25gm) Syringe) 50 ml IV PRN PRN PRN Reason: Hypoglycemia Gabapentin (Neurontin) 600 mg PO TID [facility] Last Admin: 06/27/17 09:50 Dose: 600 mg Hydralazine HCl (Apresoline) 10 mg IV Q4HR PRN PRN Reason: For SBP>185 or DBP>110 Last Admin: 06/27/17 03:13 Dose: 10 mg Piperacillin Sod/Tazobactam Sod (Zosyn/Ns 2.25 Gm/50ml) 2.25 gm in 50 mls @ 100 mls/hr IV Q8HR [facility] Last Admin: 06/27/17 08:41 Dose: 100 mls/hr Sodium Bicarbonate 150 meq/ (Dextrose) 1,150 mls @ 125 mls/hr IV DIRECT [facility] Last Admin: 06/27/17 05:13 Dose: 125 mls/hr Insulin Aspart (Novolog) 0 units SUB-Q ACHS [facility] PRN Reason: Protocol Last Admin: 06/26/17 23:07 Dose: 2 units Magnesium Hydroxide (Milk Of Magnesia) 30 ml PO Q4H PRN PRN Reason: Constipation Physical Examination - Vital Signs Vital Signs: Vital Signs Temp Pulse Resp BP Pulse Ox 98.6 F 108 H 16 185/87 96 06/25/17 13:11 06/25/17 13:11 06/25/17 13:11 06/25/17 13:11 06/25/17 13:11 Results - Laboratory Findings CBC and BMP: 06/27/17 07:26 06/27/17 07:26 Abnormal Lab Findings: Abnormal Labs 06/25/17 06/25/17 06/25/17 12:55 12:55 12:55 WBC 14.3 H RBC 2.61 L Hgb 7.7 L Hct 24.5 L Plt Count 517 H Bradley % (Auto) Eos % (Auto) 6.9 H Bradley # 1.0 H Eos # 1.0 H Seg Neutrophils % Seg Neutrophils # 8.4 H PT 16.5 H INR 1.26 H Potassium Carbon Dioxide 10 L BUN 85 H Creatinine 6.6 H Glucose 117 H POC Glucose Calcium 7.0 L Phosphorus Magnesium Iron TIBC Alkaline Phosphatase 267 H Total Creatine Kinase 158 H CK-MB (CK-2) 21.9 H CK-MB (CK-2) Rel Index 13.8 H Troponin T 0.332 H* Total Protein Albumin 2.4 L LDL Cholesterol Direct 39 L HDL Cholesterol 32 L Urine WBC (Auto) Urine Creatinine Crossmatch 06/25/17 06/25/17 06/25/17 12:59 13:38 19:20 WBC RBC Hgb Hct Plt Count Bradley % (Auto) Eos % (Auto) Bradley # Eos # Seg Neutrophils % Seg Neutrophils # PT INR Potassium Carbon Dioxide BUN Creatinine Glucose POC Glucose 114 H Calcium Phosphorus Magnesium Iron TIBC Alkaline Phosphatase Total Creatine Kinase CK-MB (CK-2) CK-MB (CK-2) Rel Index Troponin T Total Protein Albumin LDL Cholesterol Direct HDL Cholesterol Urine WBC (Auto) > 182.0 H Urine Creatinine 49.9 H Crossmatch 06/25/17 06/25/17 06/26/17 19:51 23:08 07:46 WBC RBC Hgb Hct Plt Count [place] % (Auto) Eos % (Auto) Bradley # Eos # Seg Neutrophils % Seg Neutrophils # PT INR Potassium Carbon Dioxide BUN Creatinine Glucose POC Glucose 197 H 179 H 129 H Calcium Phosphorus Magnesium Iron TIBC Alkaline Phosphatase Total Creatine Kinase CK-MB (CK-2) CK-MB (CK-2) Rel Index Troponin T Total Protein Albumin LDL Cholesterol Direct HDL Cholesterol Urine WBC (Auto) Urine Creatinine Crossmatch 06/26/17 06/26/17 06/26/17 12:00 20:05 21:58 WBC RBC Hgb Hct Plt Count [place] % (Auto) Eos % (Auto) Bradley # Eos # Seg Neutrophils % Seg Neutrophils # PT INR Potassium Carbon Dioxide BUN Creatinine Glucose POC Glucose 123 H 171 H Calcium Phosphorus Magnesium Iron TIBC Alkaline Phosphatase Total Creatine Kinase CK-MB (CK-2) CK-MB (CK-2) Rel Index Troponin T Total Protein Albumin LDL Cholesterol Direct HDL Cholesterol Urine WBC (Auto) Urine Creatinine Crossmatch See Detail 06/26/17 06/26/17 06/26/17 Unknown Unknown Unknown WBC RBC 2.11 L Hgb 6.2 L Hct 19.3 L* Plt Count 477 H Bradley % (Auto) 8.5 H Eos % (Auto) Bradley # Eos # Seg Neutrophils % Seg Neutrophils # PT INR Potassium 3.1 L D Carbon Dioxide BUN 64 H Creatinine 4.8 H Glucose 451 H POC Glucose Calcium 5.7 L* D Phosphorus 5.70 H Magnesium 1.40 L Iron TIBC Alkaline Phosphatase Total Creatine Kinase CK-MB (CK-2) CK-MB (CK-2) Rel Index Troponin T Total Protein Albumin LDL Cholesterol Direct HDL Cholesterol Urine WBC (Auto) Urine Creatinine Crossmatch 06/26/17 06/27/17 06/27/17 Unknown 07:26 07:26 WBC 15.8 H RBC 2.90 L Hgb 8.4 L Hct 25.9 L D Plt Count 595 H Bradley % (Auto) 9.4 H Eos % (Auto) Bradley # 1.5 H Eos # Seg Neutrophils % 75.4 H Seg Neutrophils # 11.9 H PT INR Potassium Carbon Dioxide 21 L BUN 62 H Creatinine 5.3 H Glucose 211 H POC Glucose Calcium 6.6 L D Phosphorus 5.00 H Magnesium Iron 17 L TIBC 112 L Alkaline Phosphatase 194 H Total Creatine Kinase CK-MB (CK-2) CK-MB (CK-2) Rel Index Troponin T Total Protein 6.1 L Albumin 2.2 L LDL Cholesterol Direct HDL Cholesterol Urine WBC (Auto) Urine Creatinine Crossmatch 06/27/17 08:50 WBC RBC Hgb Hct Plt Count Bradley % (Auto) Eos % (Auto) Bradley # Eos # Seg Neutrophils % Seg Neutrophils # PT INR Potassium Carbon Dioxide BUN Creatinine Glucose POC Glucose 228 H Calcium Phosphorus Magnesium Iron TIBC Alkaline Phosphatase Total Creatine Kinase CK-MB (CK-2) CK-MB (CK-2) Rel Index Troponin T Total Protein Albumin LDL Cholesterol Direct HDL Cholesterol Urine WBC (Auto) Urine Creatinine Crossmatch
[2017-06-27] MEDS ORDERED: ROBITUSSIN PO PRN (13:03)
--- NOTE | 2017-06-27 13:52 | Cat Scan Report ---
CT HEAD WITHOUT CONTRAST: 06/27/17 CLINICAL: Progression of left hemispheric stroke.. TECHNIQUE: 2.5-mm noncontrast scans. COMPARISON:06/25/17 CT head and MRI brain FINDINGS: A large well demarcated hypodensity has developed in the left hemisphere since the last exam. It measures at least 11 x 7 cm and is associated with significant new mass effect and shift of the midline to the right by approximately 13 mm. Mass effect on the left lateral ventricle and enlargement of the right lateral ventricle. No evidence of hemorrhage. No mass or mass effect. No extra-axial collection. No other suspicious hypodensities. Normal orbits and soft tissues. The calvarium and skull base are intact. IMPRESSION: Large subacute nonhemorrhagic left MCA infarct with interval development of subfalcine herniation. No evidence of hemorrhage.
--- NOTE | 2017-06-27 13:56 | Progress Note ---
Assessment and Plan Acute Renal failure likely pre renal, possible CKD from DM/HTN: -No BL Cr available so unknown if has CKD or not though give diabetic complications might very well have it -Cr slightly up but making good urine. Will continue bicarb drip at 125 mls/hr. -Albumin 25% q6H X 4 doses to boast up intravascular volume. -Renal US shows CKD, -ve for hydronephrosis. -RN to find out old labs from PCP -Renally dose all meds and avoid nephrotoxic meds Acute Left MCA stroke: -On plavix, statin -Per primary and Neurology. -Possibly transfer to [facility] in the pipeline for higher level of care per primary/neuro. Metabolic acidosis: -Improving with bicarb drip, will continue Sepsis due to Urinary tract infection: -Follow Cx. On ABx -Per primary Diabetes mellitus type 2 on insulin: -Per primary Essential Hypertension: -Permissive HTN per primary and Neurology Anemia possibly Anemia of chronic disease: -Possibly due to CKD -Check Iron panel, if suggests ACD then will need epogen -Transfuse PRN per primary Hypocalcemia: -Improved when corrected for albumin -Check PTH for 2HPT, if high may need calcitriol Hypomagnesemia: -Replace PRN S/p BL BKA: -On Plavix and statin Plan d/w family at bedside. Boris Saeed MD Nephrology, Hypertension, Dialysis, Transplantation Phone no: [phone] Subjective Date of service: 06/27/17 Interval history: Making urine. Family at bedside. Objective - Exam Narrative Exam: GE: lethargic HEENT: Normocephalic Neck: Supple Chest: CTAB CVS: RRR Abd: BS+, Soft Ext: BL AKA Neuro: Altered UG: Chapa with clear yellow urine - Vital Signs Vital signs: Vital Signs - 12hr 06/27/17 06/27/17 06/27/17 01:55 02:25 04:43 Temperature 97.4 F L 97.4 F L Pulse Rate 105 H 111 H 110 H Respiratory 20 Rate Blood Pressure 184/79 199/87 Blood Pressure [Left] O2 Sat by Pulse 98 100 Oximetry 06/27/17 06/27/17 06/27/17 06:41 09:09 13:06 Temperature 100.1 F H 98.3 F 99.8 F H Pulse Rate 109 H 111 H 117 H Respiratory 18 18 18 Rate Blood Pressure Blood Pressure 183/80 187/78 192/95 [Left] O2 Sat by Pulse 100 94 94 Oximetry - Lab 06/27/17 07:26 06/27/17 07:26 Most recent lab results Calcium 6.6 mg/dL (8.4-10.2) L D 06/27/17 07:26 Phosphorus 5.00 mg/dL (2.5-4.5) H 06/27/17 07:26 Magnesium 1.90 mg/dL (1.7-2.3) 06/27/17 07:26 Urine Creatinine 49.9 mg/dL (0.1-20.0) H 06/25/17 19:20 Urine Sodium 68 mmol/L 06/25/17 19:20
--- NOTE | 2017-06-27 14:09 | Consultation ---
History of Present Illness Consult date: 06/27/17 History of present illness: large area of brain edema in the area where the total occlusion of the left MCA was plan stat low dose mannitol protocol as the other factors RF anemia... make high dose not safe plan transfer to neuro ICU facility either [place] or [place] since we do NOT have neurointensivist capability in ICU setting case discussed with Dr. Garcia I personally went over the CT of head I ordered which showed edema and mass effect will need brain edema tx/ monitoring- there are multiple factors that need addressing Past History Past Medical History: diabetes, DVT, GERD, hypertension Past Surgical History: Other (Bilateral AKA) Social history: , lives with family. denies: smoking, alcohol abuse, prescription drug abuse, IV drug use Family history: diabetes, hypertension Medications and Allergies Allergies Allergy/AdvReac Type Severity Reaction Status Date / Time heparin Allergy Severe Bleeding Verified 04/13/15 08:06 metoclopramide HCl Allergy Shortness Verified 04/17/15 17:01 [From [facility]] of Breath Home Medications Medication Instructions Recorded Confirmed Last Taken Type Gabapentin [Neurontin] 600 mg PO TID #90 capsule 07/11/15 06/25/17 Unknown Rx Furosemide [Lasix TAB] 20 mg PO QDAY 08/26/15 06/25/17 Unknown History Insulin Lispro [Humalog 100 0 units SQ AC 08/26/15 06/25/17 Unknown History UNITS/ML Kwikpen] HYDROcodone/APAP 10-325 [[place] 10 mg PO Q6HR PRN 08/28/15 06/25/17 Unknown History 10-325 mg TAB] Insulin Glargine,Hum.rec.anlog 35 units SQ QHS 06/25/17 06/25/17 Unknown History [Lantus] Active Meds: Active Medications Acetaminophen (Tylenol) 650 mg PO Q6H PRN PRN Reason: Pain, Mild (1-3) Last Admin: 06/27/17 05:11 Dose: 650 mg Al Hydrox/Mg Hydrox/Simethicone (Alum-Mag Hydrox-Simeth [id number]/5ml) 30 ml PO Q4H PRN PRN Reason: Indigestion Albumin Human ([place] 25% (Albumin)) 25 gm IV Q6H [facility] Stop: 06/28/17 08:01 Atorvastatin Calcium (Lipitor) 40 mg PO QHS [facility] Last Admin: 06/26/17 23:01 Dose: 40 mg Bisacodyl (Dulcolax) 10 mg [place] QDAY PRN PRN Reason: constipation unrelieved by MOM Clopidogrel Bisulfate (Plavix) 75 mg PO QDAY [facility] Last Admin: 06/27/17 10:40 Dose: 75 mg Dextrose (D50w (25gm) Syringe) 50 ml IV PRN PRN PRN Reason: Hypoglycemia Gabapentin (Neurontin) 600 mg PO TID [facility] Last Admin: 06/27/17 09:50 Dose: 600 mg Guaifenesin (Robitussin) 200 mg PO BID PRN PRN Reason: Cough Hydralazine HCl (Apresoline) 10 mg IV Q4HR PRN PRN Reason: For SBP>185 or DBP>110 Last Admin: 06/27/17 03:13 Dose: 10 mg Piperacillin Sod/Tazobactam Sod (Zosyn/Ns 2.25 Gm/50ml) 2.25 gm in 50 mls @ 100 mls/hr IV Q8HR [facility] Last Admin: 06/27/17 08:41 Dose: 100 mls/hr Sodium Bicarbonate 150 meq/ (Dextrose) 1,150 mls @ 125 mls/hr IV DIRECT [facility] Last Admin: 06/27/17 05:13 Dose: 125 mls/hr Insulin Aspart (Novolog) 0 units SUB-Q ACHS [facility] PRN Reason: Protocol Last Admin: 06/26/17 23:07 Dose: 2 units Magnesium Hydroxide (Milk Of Magnesia) 30 ml PO Q4H PRN PRN Reason: Constipation Physical Examination - Vital Signs Vital Signs: Vital Signs Temp Pulse Resp BP Pulse Ox 98.6 F 108 H 16 185/87 96 06/25/17 13:11 06/25/17 13:11 06/25/17 13:11 06/25/17 13:11 06/25/17 13:11 Results - Laboratory Findings CBC and BMP: 06/27/17 07:26 06/27/17 07:26 Abnormal Lab Findings: Abnormal Labs 06/25/17 06/25/17 06/25/17 12:55 12:55 12:55 WBC 14.3 H RBC 2.61 L Hgb 7.7 L Hct 24.5 L Plt Count 517 H Wink[place] % (Auto) Eos % (Auto) 6.9 H Winkler # 1.0 H Eos # 1.0 H Seg Neutrophils % Seg Neutrophils # 8.4 H PT 16.5 H INR 1.26 H Potassium Carbon Dioxide 10 L BUN 85 H Creatinine 6.6 H Glucose 117 H POC Glucose Calcium 7.0 L Phosphorus Magnesium Iron TIBC Alkaline Phosphatase 267 H Total Creatine Kinase 158 H CK-MB (CK-2) 21.9 H CK-MB (CK-2) Rel Index 13.8 H Troponin T 0.332 H* Total Protein Albumin 2.4 L LDL Cholesterol Direct 39 L HDL Cholesterol 32 L Urine WBC (Auto) Urine Creatinine Crossmatch 06/25/17 06/25/17 06/25/17 12:59 13:38 19:20 WBC RBC Hgb Hct Plt Count [place] % (Auto) Eos % (Auto) [place] # Eos # Seg Neutrophils % Seg Neutrophils # PT INR Potassium Carbon Dioxide BUN Creatinine Glucose POC Glucose 114 H Calcium Phosphorus Magnesium Iron TIBC Alkaline Phosphatase Total Creatine Kinase CK-MB (CK-2) CK-MB (CK-2) Rel Index Troponin T Total Protein Albumin LDL Cholesterol Direct HDL Cholesterol Urine WBC (Auto) > 182.0 H Urine Creatinine 49.9 H Crossmatch 06/25/17 06/25/17 06/26/17 19:51 23:08 07:46 WBC RBC Hgb Hct Plt Count [place] % (Auto) Eos % (Auto) [place] # Eos # Seg Neutrophils % Seg Neutrophils # PT INR Potassium Carbon Dioxide BUN Creatinine Glucose POC Glucose 197 H 179 H 129 H Calcium Phosphorus Magnesium Iron TIBC Alkaline Phosphatase Total Creatine Kinase CK-MB (CK-2) CK-MB (CK-2) Rel Index Troponin T Total Protein Albumin LDL Cholesterol Direct HDL Cholesterol Urine WBC (Auto) Urine Creatinine Crossmatch 06/26/17 06/26/17 06/26/17 12:00 20:05 21:58 WBC RBC Hgb Hct Plt Count [place] % (Auto) Eos % (Auto) [place] # Eos # Seg Neutrophils % Seg Neutrophils # PT INR Potassium Carbon Dioxide BUN Creatinine Glucose POC Glucose 123 H 171 H Calcium Phosphorus Magnesium Iron TIBC Alkaline Phosphatase Total Creatine Kinase CK-MB (CK-2) CK-MB (CK-2) Rel Index Troponin T Total Protein Albumin LDL Cholesterol Direct HDL Cholesterol Urine WBC (Auto) Urine Creatinine Crossmatch See Detail 06/26/17 06/26/17 06/26/17 Unknown Unknown Unknown WBC RBC 2.11 L Hgb 6.2 L Hct 19.3 L* Plt Count 477 H Wink[place] % (Auto) 8.5 H Eos % (Auto) [place] # Eos # Seg Neutrophils % Seg Neutrophils # PT INR Potassium 3.1 L D Carbon Dioxide BUN 64 H Creatinine 4.8 H Glucose 451 H POC Glucose Calcium 5.7 L* D Phosphorus 5.70 H Magnesium 1.40 L Iron TIBC Alkaline Phosphatase Total Creatine Kinase CK-MB (CK-2) CK-MB (CK-2) Rel Index Troponin T Total Protein Albumin LDL Cholesterol Direct HDL Cholesterol Urine WBC (Auto) Urine Creatinine Crossmatch 06/26/17 06/27/17 06/27/17 Unknown 07:26 07:26 WBC 15.8 H RBC 2.90 L Hgb 8.4 L Hct 25.9 L D Plt Count 595 H Wink[place] % (Auto) 9.4 H Eos % (Auto) Wink[place] # 1.5 H Eos # Seg Neutrophils % 75.4 H Seg Neutrophils # 11.9 H PT INR Potassium Carbon Dioxide 21 L BUN 62 H Creatinine 5.3 H Glucose 211 H POC Glucose Calcium 6.6 L D Phosphorus 5.00 H Magnesium Iron 17 L TIBC 112 L Alkaline Phosphatase 194 H Total Creatine Kinase CK-MB (CK-2) CK-MB (CK-2) Rel Index Troponin T Total Protein 6.1 L Albumin 2.2 L LDL Cholesterol Direct HDL Cholesterol Urine WBC (Auto) Urine Creatinine Crossmatch 06/27/17 06/27/17 08:50 12:39 WBC RBC Hgb Hct Plt Count [place] % (Auto) Eos % (Auto) [place] # Eos # Seg Neutrophils % Seg Neutrophils # PT INR Potassium Carbon Dioxide BUN Creatinine Glucose POC Glucose 228 H 279 H Calcium Phosphorus Magnesium Iron TIBC Alkaline Phosphatase Total Creatine Kinase CK-MB (CK-2) CK-MB (CK-2) Rel Index Troponin T Total Protein Albumin LDL Cholesterol Direct HDL Cholesterol Urine WBC (Auto) Urine Creatinine Crossmatch
[2017-06-27] MEDS ORDERED: OSMITROL 20% IV STA (14:11)
--- NOTE | 2017-06-27 14:52 | Progress Note ---
Assessment and Plan Assessment and plan: --Large subacute L MCA stroke with subfalcine herniation, Initiate mannitol infusion recommended by neurology Continue Plavix and statin, physical therapy occupational therapy rehabilitation speech evaluation per CVA protocol Neurologist recommended transfer to [place] neuro intensive care --Sepsis/UTI; Continue empiric antibiotics and follow cultures --Severe Metabolic acidosis significant improvement on bicarbonate drip, Monitor,nephrology following --acute renal failure/vasomotor nephropathy Gentle hydration, closely monitor renal function, avoid nephrotoxic medications --Hypokalemia/hypomagnesemia; corrected, closely monitor --Type 2 diabetes mellitus; uncontrolled, Accu-Chek sliding scale coverage, tube feeding and long-acting insulin as needed, Check hemoglobin A1c --Anemia of chronic disease Status post PRBC transfusion, closely monitor H&H --Thrombocytosis/reactive Closely monitor, consider hematology consultation --Severe protein calorie malnutrition; Supportive care, tube feeding --Hypertension; Maintain blood pressures per stroke protocol When necessary medications --Severe Acute encephalopathy Secondary to massive CVA, metabolic causes Closely monitor --Follow up efforts to transfer the patient to tertiary care centers --Full CODE STATUS --Poor prognosis, patient's condition and treatment plan discussed with the family members mainly patient's daughter Answered all their questions. Plan of care also discussed with the nurse, the charge nurse Dispo Poor prognosis; family requesting transfer to [facility] , Dr. See tele neurologist consulted on ER presentation stated he discussed the case with [place] neurologist Dr. Renteria who stated that the infarct is too large to consider thrombectomy and recommended admission here with CVA management Contacted, [place] transfer pace, no beds available ,faxed the face sheet and information Contacted [facility];d/w [neurologist [place]], reports no beds available, requested repeat CT images to be transferred to PACS , skin care technician informed ,faxed the face sheet and information. We will Transfer the patient to our ICU here for close observation [pending transfer to tertiary care facility with neuro ICU when beds are available] D/W custom applicator Critical care time 40 minutes; History Interval history: Patient underwent repeat CT head this morning CT scan revealed a large subacute nonhemorrhagic left MCA infarct with interval development of subfalcine herniation, No evidence of hemorrhage Findings discussed with Family members at the bedside Neurology recommend transfer to [place] where neurointensive facilities are available. Family members especially the daughter was updated with the CT findings and above plans Patient remains unresponsive, clinically no change, able to protect her airway Vital signs reviewed Mannitol drip was started Hospitalist Physical - Constitutional Vitals: Temp Pulse Resp BP Pulse Ox 99.8 F H 117 H 18 192/95 94 06/27/17 13:06 06/27/17 13:06 06/27/17 13:06 06/27/17 13:06 06/27/17 13:06 General appearance: Present: mild distress, well-nourished, other (unresponsive) - EENT Eyes: Absent: scleral icterus, conjunctival injection ENT: other (NG tube in place) - Neck Neck: Present: supple - Respiratory Respiratory effort: normal Respiratory: bilateral: diminished, rhonchi, negative: rales, wheezing - Cardiovascular Rhythm: regular Heart Sounds: Present: S1 & S2 - Extremities Extremities: no ischemia, normal temperature, abnormal (bilateral AKA) - Abdominal General gastrointestinal: soft, non-tender, non-distended, normal bowel sounds - Integumentary Integumentary: Present: clear, warm - Psychiatric Psychiatric: other (unresponsive) - Neurologic Neurologic: other (unresponsive) Results - Labs CBC & Chem 7: 06/27/17 07:26 06/27/17 07:26 Labs: Laboratory Last Values WBC 15.8 K/mm3 (4.5-11.0) H 06/27/17 07:26 RBC 2.90 M/mm3 (3.65-5.03) L 06/27/17 07:26 Hgb 8.4 gm/dl (10.1-14.3) L 06/27/17 07:26 Hct 25.9 % (30.3-42.9) L D 06/27/17 07:26 MCV 90 fl (79-97) 06/27/17 07:26 MCH 29 pg (28-32) 06/27/17 07:26 MCHC 32 % (30-34) 06/27/17 07:26 RDW 14.8 % (13.2-15.2) 06/27/17 07:26 Plt Count 595 K/mm3 (140-440) H 06/27/17 07:26 Lymph % (Auto) 14.1 % (13.4-35.0) 06/27/17 07:26 [place] % (Auto) 9.4 % (0.0-7.3) H 06/27/17 07:26 Eos % (Auto) 0.4 % (0.0-4.3) 06/27/17 07:26 Baso % (Auto) 0.7 % (0.0-1.8) 06/27/17 07:26 Lymph # 2.2 K/mm3 (1.2-5.4) 06/27/17 07:26 [place] # 1.5 K/mm3 (0.0-0.8) H 06/27/17 07:26 Eos # 0.1 K/mm3 (0.0-0.4) 06/27/17 07:26 Baso # 0.1 K/mm3 (0.0-0.1) 06/27/17 07:26 Seg Neutrophils % 75.4 % (40.0-70.0) H 06/27/17 07:26 Seg Neutrophils # 11.9 K/mm3 (1.8-7.7) H 06/27/17 07:26 PT 16.5 Sec. (12.2-14.9) H 06/25/17 12:55 INR 1.26 (0.87-1.13) H 06/25/17 12:55 APTT 35.3 Sec. (24.2-36.6) 06/25/17 12:55 Sodium 142 mmol/L (137-145) 06/27/17 07:26 Potassium 4.1 mmol/L (3.6-5.0) D 06/27/17 07:26 Chloride 101.4 mmol/L (98-107) 06/27/17 07:26 Carbon Dioxide 21 mmol/L (22-30) L 06/27/17 07:26 Anion Gap 24 mmol/L 06/27/17 07:26 BUN 62 mg/dL (7-17) H 06/27/17 07:26 Creatinine 5.3 mg/dL (0.7-1.2) H 06/27/17 07:26 Estimated GFR 11 ml/min 06/27/17 07:26 BUN/Creatinine Ratio 12 % 06/27/17 07:26 Glucose 211 mg/dL (65-100) H 06/27/17 07:26 POC Glucose 279 (70-105) H 06/27/17 12:39 Lactic Acid 0.90 mmol/L (0.7-2.0) 06/26/17 00:36 Calcium 6.6 mg/dL (8.4-10.2) L D 06/27/17 07:26 Phosphorus 5.00 mg/dL (2.5-4.5) H 06/27/17 07:26 Magnesium 1.90 mg/dL (1.7-2.3) 06/27/17 07:26 Iron 17 ug/dL (37-170) L 06/26/17 Unknown TIBC 112 mcg/dL (250-450) L 06/26/17 Unknown Total Bilirubin 0.30 mg/dL (0.1-1.2) 06/27/17 07:26 Direct Bilirubin < 0.2 mg/dL (0-0.2) 06/27/17 07:26 Indirect Bilirubin 0.1 mg/dL 06/27/17 07:26 AST 17 units/L (5-40) 06/27/17 07:26 ALT 7 units/L (7-56) 06/27/17 07:26 Alkaline Phosphatase 194 units/L (35-129) H 06/27/17 07:26 Ammonia 57.0 umol/L (25-60) 06/25/17 13:04 Total Creatine Kinase 158 units/L (30-135) H 06/25/17 12:55 CK-MB (CK-2) 21.9 ng/mL (0.0-4.0) H 06/25/17 12:55 CK-MB (CK-2) Rel Index 13.8 (0-4) H 06/25/17 12:55 Troponin T 0.332 ng/mL (0.00-0.029) H* 06/25/17 12:55 Total Protein 6.1 g/dL (6.3-8.2) L 06/27/17 07:26 Albumin 2.2 g/dL (3.9-5) L 06/27/17 07:26 Albumin/Globulin Ratio 0.6 % 06/27/17 07:26 Triglycerides 141 mg/dL (2-149) 06/25/17 12:55 Cholesterol 99 mg/dL (50-199) 06/25/17 12:55 LDL Cholesterol Direct 39 mg/dL (50-130) L 06/25/17 12:55 HDL Cholesterol 32 mg/dL (40-59) L 06/25/17 12:55 Cholesterol/HDL Ratio 3.09 % 06/25/17 12:55 Urine Color Yellow (Yellow) 06/25/17 13:38 Urine Turbidity Clear (Clear) 06/25/17 13:38 Urine pH 5.0 (5.0-7.0) 06/25/17 13:38 Ur Specific [place] 1.013 (1.003-1.030) 06/25/17 13:38 Urine Protein 100 mg/dl mg/dL (Negative) 06/25/17 13:38 Urine Glucose (UA) 50 mg/dL (Negative) 06/25/17 13:38 Urine Ketones Neg mg/dL (Negative) 06/25/17 13:38 Urine Blood Mod (Negative) 06/25/17 13:38 Urine Nitrite Pos (Negative) 06/25/17 13:38 Urine Bilirubin Neg (Negative) 06/25/17 13:38 Urine Urobilinogen < 2.0 mg/dL (<2.0) 06/25/17 13:38 Ur Leukocyte Esterase Lg (Negative) 06/25/17 13:38 Urine WBC (Auto) > 182.0 /HPF (0.0-6.0) H 06/25/17 13:38 Urine RBC (Auto) 12.0 /HPF (0.0-6.0) 06/25/17 13:38 U Epithel Cells (Auto) 1.0 /HPF (0-13.0) 06/25/17 13:38 Urine Bacteria (Auto) 4+ /HPF (Negative) 06/25/17 13:38 Urine WBC Clumps 3+ /HPF 06/25/17 13:38 Urine Eosinophils None seen (None Seen) 06/25/17 13:38 Urine Creatinine 49.9 mg/dL (0.1-20.0) H 06/25/17 19:20 Urine Sodium 68 mmol/L 06/25/17 19:20 Blood Type A POSITIVE 06/26/17 20:05 Antibody Screen Negative 06/26/17 20:05 Crossmatch See Detail 06/26/17 20:05
[2017-06-27] MEDS ORDERED: ALBURX 25% (ALBUMIN) IV SCH (15:30)
[2017-06-27] MEDS ORDERED: VASELINE LIP THERAPY TP PRN (18:54)
[2017-06-27] MEDS ORDERED: ARTIFICIAL TEARS OPHTH OINT OU PRN (18:54)
--- NOTE | 2017-06-27 18:56 | Event Note ---
Date: 06/27/17 I discussed the case with neurologist [facility], for possible transfer He requested to intubate the patient prior to transfer, and [facility] will call ICU when transfer arrangements are made Discussed with Dr. Chew, ICU charge nurse
[2017-06-27] MEDS ORDERED: NACL 0.9% 500 ML IV SCH (19:00)
[2017-06-27] MEDS ORDERED: VERSED IV ONE (19:30)
[2017-06-27] MEDS ORDERED: DIPRIVAN 10 MG/ML IV ONE ×2 (19:38→19:55)
[2017-06-27] MEDS ORDERED: ZEMURON IV ONE ×2 (19:41→20:45)
[2017-06-27] MEDS ORDERED: SUBLIMAZE IV ONE (20:00)
--- NOTE | 2017-06-27 20:08 | Progress Note ---
Subjective Date of service: 06/27/17 Interval history: Ms Veloz is a 46 year old with a history of hypertension. diabetes and gastroesophageal reflux. She is S/P bilateral BKA's. She was admitted after a large MCA stroke. She is to be transferred to [facility] and the accepting [place] physician requested that the patient be intubated prior to transport. An attempt by respiratory to intubate the patient under sedation failed due to patient agitation so anesthesia help was requested. 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 She was hyperventilated and then intubated without problem with a MAC 3 blade and a 7.0 oral endotracheal tube. Tube position was confirmed with ETCO2 and bilateral breath sounds. Respiratory was to order a chest X ray. The patient tolerated the procedure well. Objective - Constitutional Vitals: Vital Signs - 12hr 06/27/17 06/27/17 06/27/17 09:09 13:06 16:01 Temperature 98.3 F 99.8 F H Pulse Rate 111 H 117 H Respiratory 18 18 Rate Blood Pressure Blood Pressure 187/78 192/95 [Left] O2 Sat by Pulse 94 94 95 Oximetry 06/27/17 16:20 Temperature Pulse Rate 110 H Respiratory Rate Blood Pressure 207/84 Blood Pressure [Left] O2 Sat by Pulse Oximetry - Labs CBC & Chem 7: 06/27/17 07:26 06/27/17 07:26 Labs: Abnormal lab results 06/26/17 06/26/17 06/27/17 Range/Units 20:05 21:58 07:26 WBC 15.8 H (4.5-11.0) K/mm3 RBC 2.90 L (3.65-5.03) M/mm3 Hgb 8.4 L (10.1-14.3) gm/dl Hct 25.9 L D (30.3-42.9) % Plt Count 595 H (140-440) K/mm3 [place] % (Auto) 9.4 H (0.0-7.3) % [place] # 1.5 H (0.0-0.8) K/mm3 Seg Neutrophils % 75.4 H (40.0-70.0) % Seg Neutrophils # 11.9 H (1.8-7.7) K/mm3 Carbon Dioxide (22-30) mmol/L BUN (7-17) mg/dL Creatinine (0.7-1.2) mg/dL Glucose (65-100) mg/dL POC Glucose 171 H (70-105) Calcium (8.4-10.2) mg/dL Phosphorus (2.5-4.5) mg/dL Alkaline Phosphatase (35-129) units/L Total Protein (6.3-8.2) g/dL Albumin (3.9-5) g/dL Crossmatch See Detail 06/27/17 06/27/17 06/27/17 Range/Units 07:26 08:50 12:39 WBC (4.5-11.0) K/mm3 RBC (3.65-5.03) M/mm3 Hgb (10.1-14.3) gm/dl Hct (30.3-42.9) % Plt Count (140-440) K/mm3 [place] % (Auto) (0.0-7.3) % [place] # (0.0-0.8) K/mm3 Seg Neutrophils % (40.0-70.0) % Seg Neutrophils # (1.8-7.7) K/mm3 Carbon Dioxide 21 L (22-30) mmol/L BUN 62 H (7-17) mg/dL Creatinine 5.3 H (0.7-1.2) mg/dL Glucose 211 H (65-100) mg/dL POC Glucose 228 H 279 H (70-105) Calcium 6.6 L D (8.4-10.2) mg/dL Phosphorus 5.00 H (2.5-4.5) mg/dL Alkaline Phosphatase 194 H (35-129) units/L Total Protein 6.1 L (6.3-8.2) g/dL Albumin 2.2 L (3.9-5) g/dL Crossmatch 06/27/17 Range/Units 17:20 WBC (4.5-11.0) K/mm3 RBC (3.65-5.03) M/mm3 Hgb (10.1-14.3) gm/dl Hct (30.3-42.9) % Plt Count (140-440) K/mm3 [place] % (Auto) (0.0-7.3) % [place] # (0.0-0.8) K/mm3 Seg Neutrophils % (40.0-70.0) % Seg Neutrophils # (1.8-7.7) K/mm3 Carbon Dioxide (22-30) mmol/L BUN (7-17) mg/dL Creatinine (0.7-1.2) mg/dL Glucose (65-100) mg/dL POC Glucose 296 H (70-105) Calcium (8.4-10.2) mg/dL Phosphorus (2.5-4.5) mg/dL Alkaline Phosphatase (35-129) units/L Total Protein (6.3-8.2) g/dL Albumin (3.9-5) g/dL Crossmatch
[2017-06-27 21:04] LABS: ISTAT Base Excess 9; ISTAT PCO2 33.9 (35-45); ISTAT PO2 360 (80-105); ISTAT SO2 100; ISTAT TCO2 32
[2017-06-27 21:32] VITALS: BP 178/79
--- NOTE | 2017-06-27 23:01 | XRay Report ---
FINAL REPORT PROCEDURE: XR CHEST 1V AP TECHNIQUE: Chest radiograph anteroposterior view. CPT 85499 HISTORY: ETT placement COMPARISON: 06/25/2017 FINDINGS: Heart: Normal. Mediastinum/Vessels: Unremarkable. Lungs/Pleural space: Normal. Bony thorax: No acute osseous abnormality. Life support devices: Endotracheal tube is terminating about 1.5 centimeters above the marcela. Nasogastric tube is seen to extend down into the abdomen and its tip is not included in the study.. IMPRESSION: Endotracheal tube is terminating about 1.5 centimeters above the marcela. .
--- NOTE | 2017-06-28 00:09 | Consultation ---
HISTORY OF PRESENT ILLNESS: This is a 46-year-old black female that is admitted to [facility] as an emergency admission. The patient was admitted on 06/25/2017, initially was admitted because of onset of aphasia which by history occurred around 11:45 a.m. She was brought by EMS. She was aphasic and appeared to be flaccid on the right side. Initial interview at 12:55 indicated the patient had right-sided weakness of her face, but this was related to her prior cataract surgery and retinal hemorrhage; about 2 hours later, it was then documented that the last known well time was between 9 to 10 and that she had an MRI scan of the brain and MRA scan of the brain, which were obtained acutely at that point because the CT scan suggested a hyperdense sign in the left middle cerebral artery. This was actually confirmed on the MRI scan. There was a subtle occlusion of the left MCA and the diffusion weighted image, which was done acutely showed a rather massive area of infarction noted over the entire left cerebral hemisphere on the diffusion weighted image. During the interval after that the patient had conversations between tell Neurology, Dr. See and the [facility] and it was felt that she was not a candidate for thrombectomy in the MCA given the size of the infarct. In the interval, I have reviewed most of these images myself and she does have a hypodensity in the left hemisphere equivalent to the MCA distribution and I did confirm that she has an occlusion of the left MCA. Since the stroke, she has not had any return of neurological function as far as speech and she is aphasic. She does have some slight movement of the right side, however, and she will open her eyes, although does not attempt to communicate with family members. 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 She will open her eyes slightly. She moves the left side very well. She is arousable. She is capable of slight movement of the right arm, but is hypertonic, somewhat rigid. I do not find that she has any rigidity suggestive of meningitis. The examination of the head is unremarkable. Neck is unremarkable. IMPRESSION: This patient has a very atypical presentation for a left MCA stroke in that the occlusion is rather total but the onset of the symptoms more than likely occurred at least 6-7 hours before the patient being transported to the hospital by EMS because of the appearance of the MRI scan. I agree with the [facility] about the issue of clot retrieval and one thing that I cannot be sure of is whether the patient had a preexisting stenosis. At this point, her creatinine is 5.3 and factors involving the renal failure and the diabetic management, I think were obviously contributing factors. She also has a low iron and total iron binding capacity is low as well as the hematocrit being low at 19.3. This obviously has contributed to the problem. I did speak with family members and advised them I will recheck her CT scan of the head. She may need to go to [place] for further stroke care at this point given the complexity of her issues, other medical factors including renal failure, hyperglycemia and anemia as well as a low albumin of 2.2. These all other factors, which complicate her stroke recovery and stroke care. JOB# [id number] JENNIFER/MONI
--- NOTE | 2017-06-28 02:27 | Consultation ---
ROOM: #[id number]. This is a 46-year-old black female that was initially admitted on 06/25/2017, seeing her at this point 48 hours after the initial onset of the stroke, I went over the MRI scan with the family. 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 In reviewing the MRI scan, she did have a slight stenosis of the right side and there was no cross filling from the anterior cerebral into the area of infarct nor was there an enlarged large posterior communicating artery such that there was cross filling indicating she had very little collateral supply. Some of this, I think, is related to the fact that the patient is profoundly anemic as well has underlying factors of diabetes and renal failure, which probably compromise her intracranial blood flow. Unfortunately, into the situation, as she lost flow into the territory of the middle cerebral, she had no cross filling from either the anterior or posterior circulation and no cross filling from the right side. Therefore, she has a total lack of blood supply to the left MCA territory. Consequently, the initial area of infarction is an area of total ischemia, and not unexpectedly in 48 hour interval, she has developed a massive area of brain edema in that vascular territory, which produces a left to right shift. Under the circumstances, I mentioned to Dr. Garcia that she has a number of factors including diabetes very poorly controlled, renal failure with a creatinine of 5.3, she is anemic, she has a low blood iron, she is well has a low albumin level which does reduce her plasma oncotic pressure, all these factors are so complicated that she needs to be in the neuro intensive care setting and will be managed by neuro python architect at a comprehensive stroke center such as [facility] or [facility]. This primary stroke center does not have the capability to manage of the complexities of the case such as this at this point in time. Our plan is to give her low doses of mannitol. The above was explained to both the son and the daughter. I went over the images from today's CT scan. The MRI scans of admission with the son and daughter, answered their questions and I gave them a feedback as to my recommendations. JOB# [id number] JENNIFER/NTS
--- NOTE | 2017-06-29 07:32 | Discharge Summary ---
Providers - Providers Date of Admission: 06/25/17 18:46 Date of discharge: 06/27/17 Attending physician: ALEJO VELAZQUEZ 06/25/17 17:12 Consult to Physician [CONS] Urgent Consulting Provider: GWEN NATARAJAN Reason For Exam: acute renal failure Place consult to:: NEPHOLOGY Notified:: [place] If yes, spoke with:: DR NATARAJAN Time called:: 17:10 06/26/17 20:10 Occupational Therapy Evaluate and Treat [CONS] Routine Comment: Reason For Exam: Weakness Physical Therapy Evaluation and Treat [CONS] Routine Comment: Reason For Exam: Weakness Speech Therapy Evaluation and Treat [CONS] Routine Reason For Exam: dysphagia 06/27/17 09:30 Consult to Physician [CONS] Routine Consulting Provider: MANDO WIGGINS Reason For Exam: acute CVA Place consult to:: Dr. Wiggins Notified:: Addie SALAZAR Phone number called:: Was contact made?: Yes If yes, spoke with:: Radha service Time called:: 09:29 06/27/17 14:34 Consult to Physician [CONS] Routine Consulting Provider: CEASAR RAI Reason For Exam: Large CVA with Sobfalcine herniation/CC consult Primary care physician: ELECTRICAL APPRENTICE Hospitalization Reason for admission: Altered mental status/acute CVA Condition: Serious Pertinent studies: CT head MRI,MRA Carotid doppler Hospital course: -Patient was admitted with acute CVA,not a candidate for TPA Had extensive w/u ,noted to have large CVA Seen by Neurologst,Rpt CT reveal woesening CVA ith sub Falcene herniation. received Mannitol ,and patient is transferred to Neuro intensive care unit [facility]. Patient is hemodynamically stable with poor prognosis. Patient was intubated prior to transfer as recomended by [place] neurointensivist Discharge Diagnosis and treatment: --Large subacute L MCA stroke with subfalcine herniation, Initiate mannitol infusion recommended by neurology Continue Plavix and statin, physical therapy occupational therapy rehabilitation speech evaluation per CVA protocol Neurologist recommended transfer to [place]/[facility] neuro intensive care --Sepsis/UTI; Continue empiric antibiotics and follow cultures --Severe Metabolic acidosis significant improvement on bicarbonate drip, Monitor,nephrology following --acute renal failure/vasomotor nephropathy Gentle hydration, closely monitor renal function, avoid nephrotoxic medications --Hypokalemia/hypomagnesemia; corrected, closely monitor --Type 2 diabetes mellitus; uncontrolled, Accu-Chek sliding scale coverage, tube feeding and long-acting insulin as needed, Check hemoglobin A1c --Anemia of chronic disease Status post PRBC transfusion, closely monitor H&H --Thrombocytosis/reactive Closely monitor, consider hematology consultation --Severe protein calorie malnutrition; Supportive care, tube feeding --Hypertension; Maintain blood pressures per stroke protocol When necessary medications --Severe Acute encephalopathy Secondary to massive CVA, metabolic causes Closely monitor patient is being transferred to [facility] Disposition: [id number] [facility] Time spent for discharge: 45 min Core Measure Documentation - Palliative Care Palliative Care/ Comfort Measures: Not Applicable - Core Measures Any of the following diagnoses?: stroke - Stroke Discharge Requirements Statin for LDL = or >70 mg/dl on DC: Yes Anticoag for atrial fib/atrial flutter: Not Applicable (no afib/aflutter) Antithrombotic for ischemic stroke: Yes Exam - Constitutional Vitals: Temp Pulse Resp BP Pulse Ox 100.6 F H 105 H 9 L 178/79 100 06/27/17 20:00 06/27/17 21:10 06/27/17 21:10 06/27/17 21:10 06/27/17 21:00 General appearance: Present: mild distress, cachectic - EENT Eyes: Present: PERRL, EOM intact - Neck Neck: Present: supple, normal ROM - Respiratory Respiratory effort: normal Respiratory: bilateral: diminished, negative: rales, rhonchi - Cardiovascular Rhythm: regular Heart Sounds: Present: S1 & S2 - Extremities Extremities: no ischemia, No edema - Abdominal General gastrointestinal: Present: soft, non-tender, non-distended, normal bowel sounds - Integumentary Integumentary: Present: clear, warm - Musculoskeletal Musculoskeletal: other (unresponsive) - Psychiatric Psychiatric: other (unresponsive) - Neurologic Neurologic: other (unresponsive) Plan Additional Instructions: Transfer to [facility] Neuro intensive care unit for further management Follow up with: JOSE ANGEL FOX MD [Primary Care Provider] - 3-5 Days
== END 2017-06-27 21:30 | DRG 871 ==
LOC: ED 12:54 → CC1 18:46 → 4A 06-26 15:57 → CC1 06-27 18:28
PROVIDERS: ADMIT Internal Medicine; ATTEND Internal Medicine
PROC: 30233N1 Transfusion of Nonautologous Red Blood Cells into Peripheral Vein, Percutaneous Approach (ICD-10-PCS; principal; 2017-06-27)
PROC: 4A033R1 Measurement of Arterial Saturation, Peripheral, Percutaneous Approach (ICD-10-PCS; 2017-06-27)
PROC: 5A1935Z Respiratory Ventilation, Less than 24 Consecutive Hours (ICD-10-PCS; 2017-06-27)
PROC: 0BH17EZ Insertion of Endotracheal Airway into Trachea, Via Natural or Artificial Opening (ICD-10-PCS; 2017-06-27)
DX: A41.9 Sepsis, unspecified organism (principal); N17.0 Acute kidney failure with tubular necrosis; E43 Unspecified severe protein-calorie malnutrition; G93.40 Encephalopathy, unspecified; I63.512 Cerebral infarction due to unspecified occlusion or stenosis of left middle cerebral artery; N39.0 Urinary tract infection, site not specified; E87.2 Acidosis; I10 Essential (primary) hypertension; D64.9 Anemia, unspecified; E87.6 Hypokalemia; E83.42 Hypomagnesemia; D63.1 Anemia in chronic kidney disease; E83.51 Hypocalcemia; D69.6 Thrombocytopenia, unspecified; K21.9 Gastro-esophageal reflux disease without esophagitis; E11.9 Type 2 diabetes mellitus without complications; Z90.49 Acquired absence of other specified parts of digestive tract; Z89.612 Acquired absence of left leg above knee; Z89.611 Acquired absence of right leg above knee; Z68.21 Body mass index [BMI] 21.0-21.9, adult; Z79.899 Other long term (current) drug therapy; Z79.4 Long term (current) use of insulin; Z83.3 Family history of diabetes mellitus; Z82.49 Family history of ischemic heart disease and other diseases of the circulatory system; Z88.8 Allergy status to other drugs, medicaments and biological substances; Z68.23 Body mass index [BMI] 23.0-23.9, adult; Z86.718 Personal history of other venous thrombosis and embolism; Z79.01 Long term (current) use of anticoagulants
CPT/HCPCS: 36415; 36600; 70450; 70544; 70551; 71010; 74000; 76770; 80048; 80053; 80061; 80074; 81001; 82140; 82550; 82553; 82570; 82803; 82962; 83550; 83735; 84100; 84300; 84484; 85025; 85610; 85730; 86850; 86900; 86901; 86920; 87040; 87076; 87086; 87186; 89050; 93005; 93010; 94002; 94003; 94760; 96374; 99285; A9270-GY; J0360; J0610; J1815; J2150; J2250; J2405; J2543; J2704; J3010; J3370; J3475; J3480; J7030; J7040; J7050; J7070; P9016; P9047